=== PATIENT | male | born 1945 | race Hispanic/Latino ===

== ENCOUNTER 2025-04-02 11:42 | Inpatient (IN) | payer OTHER ==
[~2025-04-02] VITALS: Ht 167.6 cm; Wt 58.3 kg
[2025-04-02 12:16] LABS: IMMATURE GRANULOCYTE ABSOLUTE 0.04 K/uL (0-1); NUCLEATED RED BLOOD CELLS 0.0 % (0.0-0.19); PLATELET COUNT (AUTO) 60 K/uL (130-400); RED BLOOD CELL COUNT(AUTO) 4.62 MIL/uL (4.50-6.20); RED CELL DISTRIBUTION WIDTH 14.6 % (11.0-15.5); WHITE BLOOD COUNT (AUTO) 3.9 K/uL (4.8-10.8)
--- NOTE | 2025-04-02 12:23 | HMCIMG ---
EXAM: CR Chest, 1 View. CLINICAL HISTORY: weakness COMPARISON: None provided. FINDINGS: Bilateral perihilar and bibasilar airspace disease that is presumed to reflect a combination of pulmonary edema and atelectasis. Small left and moderate right bilateral effusions. There is cardiomegaly and pulmonary vascular congestion. IMPRESSION: 1. Bilateral perihilar and bibasilar airspace disease, likely representing pulmonary edema and atelectasis, with bilateral pleural effusions (moderate right, small left). 2. Cardiomegaly and pulmonary vascular congestion. /[place]
[2025-04-02 12:24] LABS: CREATININE 1.2 mg/dL (0.5-1.3); GLOMERULAR FILTR. RATE CALC 62.0 mL/min (>90); GLUCOSE,RANDOM 103.0 mg/dL (70-105); SODIUM SERUM 136.0 mmol/L (136-145); UREA NITROGEN, BLOOD 20.0 mg/dL (7-18)
[2025-04-02 12:28] LABS: APPEARANCE,URINE CLEAR (CLEAR); GLUCOSE, URINE (UA) NEGATIVE (NEGATIVE); LEUKOCYTE ESTERASE ,URINE NEGATIVE Leu/uL (NEGATIVE); NITRATE,URINE NEGATIVE (NEGATIVE); OCCULT BLOOD,URINE NEGATIVE (NEGATIVE)
[2025-04-02 12:29] LABS: CREATINE KINASE, TOTAL 58.0 U/L (21-232)
[2025-04-02 12:46] LABS: ADD UA MICROSCOPIC YES
--- NOTE | 2025-04-02 12:49 | ERN ---
General Chief Complaint: Failure to Thrive Stated Complaint: FAILURE TO THRIVE Time Seen by MD: 11:46 Source: patient History of Present Illness Initial Comments Patient is a 79-year-old gentleman coming in to be evaluated for generalized body weakness. Per EMS patient has been a weakness. Allergies: Coded Allergies: No Known Drug Allergies (Unverified Allergy, Unknown, 04/02/25) Past Medical History Past Medical History: No Pertinent History Past Surgical History: Unknown ROS Dictation CONSTITUTIONAL: No chills, no fever, no weakness, no diaphoresis, no malaise. HEAD/FACE: No signs of trauma. EENT: No eye pain, no blurred vision, no tearing, no double vision, no ear pain, no ear discharge, no nose pain, no nasal congestion, no throat pain, no throat swelling, no mouth pain. RESPIRATORY: No cough, no orthopnea, no SOB, no stridor, no wheezing. CARDIOVASCULAR: No chest pain, no edema, no palpitations, no syncope. GASTROINTESTINAL/ABDOMINAL: No abdominal pain, no constipation, no diarrhea, no nausea, no vomiting. GENITOURINARY: No abnormal discharge, no dysuria, no frequent urination, no hematuria. No complaints of pain in the genitals. MUSCULOSKELETAL: No back pain, no gout, no joint pain, no joint swelling, no muscle pain, no muscle stiffness, no neck pain. INTEGUMENTARY: No change in color, no change in hair/nails, no dryness, no lesion, no lumps, no rash. NEUROLOGICAL/PSYCH: No anxiety, not depressed, no emotional problem, no headache, no numbness, no pre-existing deficit, no history of seizures, no chapo mors, no weakness. HEMATOLOGIC/LYMPHATIC: Not anemic, no history of blood clots, no apparent bleeding, no bruising, glands not swollen. All Systems Negative, Except as Noted. Physical Exam Physical Exam Dictation VITAL SIGNS: Reviewed. GENERAL APPEARANCE: Alert, oriented x3, no acute distress, obese. HEAD AND FACE: Non-traumatic. EYES: PERRL, pink conjunctivas, eyelid no trauma, anterior chamber clear. EARS: Pinnas intact and no signs of trauma or erythema. Ear canals clear and no discharge. TMs no erythema. NOSE: No discharge, no bleeding. OROPHARYNX: Mouth normal, teeth no caries, tongue pink. Pharynx clear, no erythema. Tonsils no exudates, no abscesses noted. Mucous membrane moist. NECK: Supple, non-tender, no thyromegaly, no masses, no JVD, no bruits. BREAST: Deferred. CHEST: No tenderness, no crepitus, no paradoxical movement, no retractions. LUNGS: Clear, well-ventilated, symmetric, no rales, no wheezing, no rhonchi, no stridor, good breath sounds bilaterally. HEART: Regular rate, regular rhythm, no murmur, no gallops. VASCULAR: No peripheral edema. ABDOMEN: Soft, positive bowel sounds, nondistended, no guarding, nontender, no rebound, no masses no hepatomegaly, no splenomegaly, no Cuevas's sign, no hernias. RECTAL: Deferred. GENITAL: Deferred. NEUROLOGICAL: Normal speech, gross motor function intact, gross sensory function intact. MUSCULOSKELETAL: Neck nontender, full range of motion, back nontender, full range of motion. EXTREMITIES: Nontender, full range of motion. SKIN: Color pink, dry, no turgor, no rash, no lacerations, no abrasions, no contusions. LYMPHATICS: Deferred. Results Laboratory and Microbiology Lab and Micro Result Laboratory Tests Test 04/02/25 11:58 04/02/25 12:00 White Blood Count 3.9 K/uL (4.8-10.8) L Red Blood Count 4.62 MIL/uL (4.50-6.20) Hemoglobin 14.5 g/dL (14.0-18.0) Hematocrit 42.7 % (42-54) Mean Corpuscular Volume 92.4 fL (79-99) Mean Corpuscular Hemoglobin 31.4 pg (27.0-33.0) Mean Corpuscular Hemoglobin Concent 34.0 g/dL (32.0-36.0) Red Cell Distribution Width 14.6 % (11.0-15.5) Platelet Count 60 K/uL (130-400) L Mean Platelet Volume 10.9 fL (7.5-10.5) H Immature Granulocyte % (Auto) 1.0 % (0-1) Neutrophils (%) (Auto) 53.0 % (40.0-77.0) Lymphocytes (%) (Auto) 36.7 % (21.0-51.0) Monocytes (%) (Auto) 8.5 % (3.0-13.0) Eosinophils (%) (Auto) 0.0 % (0.0-8.0) Basophils (%) (Auto) 0.8 % (0.0-5.0) Neutrophils # (Auto) 2.1 K/uL (1.8-7.7) Lymphocytes # (Auto) 1.4 K/uL (1.0-4.8) Monocytes # (Auto) 0.3 K/uL (0.1-1.0) Eosinophils # (Auto) 0.00 K/uL (0.00-0.70) Basophils # (Auto) 0.03 K/uL (0.00-0.20) Absolute Immature Granulocyte (auto 0.04 K/uL (0-1) Nucleated Red Blood Cells 0.0 % (0.0-0.19) Platelet Morphology Comment See comments Sodium Level 136 mmol/L (136-145) Potassium Level 3.7 mmol/L (3.5-5.1) Chloride Level 102 mmol/L (101-111) Carbon Dioxide Level 23 mmol/L (21-32) Blood Urea Nitrogen 20 mg/dL (7-18) H Creatinine 1.2 mg/dL (0.5-1.3) Glomerular Filtration Rate Calc 62 mL/min (>90) Random Glucose 103 mg/dL (70-105) Total Calcium 9.2 mg/dL (8.5-10.1) Magnesium Level 2.00 mg/dL (1.80-2.40) Total Creatine Kinase 58 U/L (21-232) Troponin I High Sensitivity 84 ng/L (4-75) *H Urine Color YELLOW (YELLOW) Urine Appearance CLEAR (CLEAR) Urine pH 6.0 (5.0-8.0) Urine Specific [place] 1.013 (1.001-1.031) Urine Protein 10 mg/dL (NEGATIVE) H Urine Glucose (UA) NEGATIVE mg/dL (NEGATIVE) Urine Ketones NEGATIVE mg/dL (NEGATIVE) Urine Occult Blood NEGATIVE (NEGATIVE) Urine Nitrate NEGATIVE (NEGATIVE) Urine Bilirubin NEGATIVE mg/dL (NEGATIVE) Urine Urobilinogen 0.2 mg/dL (0.2-1.0) Urine Leukocyte Esterase NEGATIVE [place]/uL Urine RBC 0-1 /HPF (0-1) Urine WBC 2-5 /HPF (0-1) H Urine Squamous Epithelial Cells RARE /HPF (0-2) Urine Bacteria None /HPF (None Seen) Labs Reviewed?: Yes EKG/XRAY/US/CT/MRI EKG Comment 04/02/2025 time 11:52 a.m. Ventricular rate [address] wave elevation or depression X-RAY Comment IMAGING REPORT Signed PATIENT: BECKI ROMERO MR#: [id number] : 1945 SEX: M AGE: 79 LOCATION: EDH ORDER 114 STATUS: REG ER REPORT#: [id number] SERVICE 114 REASON: weakness ORDERING PHYSICIAN: MILES MARCIAL MD PROCEDURE: CXR1VW - CHEST 1VW EXAM: CR Chest, 1 View. CLINICAL HISTORY: weakness COMPARISON: None provided. FINDINGS: Bilateral perihilar and bibasilar airspace disease that is presumed to reflect a combination of pulmonary edema and atelectasis. Small left and moderate right bilateral effusions. There is cardiomegaly and pulmonary vascular congestion. IMPRESSION: 1. Bilateral perihilar and bibasilar airspace disease, likely representing pulmonary edema and atelectasis, with bilateral pleural effusions (moderate right, small left). 2. Cardiomegaly and pulmonary vascular congestion. /[place] DICTATED BY: BENJI MAY Jr., MD DATE: 04/02/251321 ELECTRONICALLY SIGNED BY: BENJI MAY Jr., MD DATE: 04/02/251321 [place] [id number] IMAGING REPORT Signed PATIENT: BECKI ROMERO MR#: [id number] : 1945 SEX: M AGE: 79 LOCATION: ED ORDER 124 STATUS: REG ER REPORT#: [id number] SERVICE 124 REASON: FALL ORDERING PHYSICIAN: MILES MARCIAL MD PROCEDURE: [id number] - ELBOW 2VWS LT EXAM: CR right elbow, 2 View. CLINICAL HISTORY: FALL COMPARISON: None provided. FINDINGS: BONES: No acute fracture or aggressive appearing osseous lesion. Small enthesophyte at the olecranon. JOINTS: The joint spaces appear within normal limits. No dislocation. No radiographic evidence of a joint effusion. SOFT TISSUES: The soft tissues are unremarkable. IMPRESSION: No acute osseous abnormality. /[place] DICTATED BY: BENJI MAY Jr., MD DATE: 04/02/251517 ELECTRONICALLY SIGNED BY: BENJI MAY Jr., MD DATE: 04/02/251517 [facility] MDM: Differential diagnosis: BILATERAL PLEURAL EFFUSION, FAILURE TO THRIVE, ACS, Rationale: Tests considered and ordered secondary to shared decision making include: labs, ECG and radiology Previous outside records reviewed: Old ER visits. Risk of complication and/or morbidity or mortality of patient management: None Medications-Per medication reconciliation Need for hospitalization: Patient does meet criteria for hospitalization. Need for emergency major/minor surgery: No There are no social concerns with this patient. Prescription drug management Prescriptions will include symptomatic care Patient's prior external medical records from other ER visits were reviewed by me as indicated. Prior testing and results from previous visits were reviewed. Prior tests were taken into account with medical decision making and resource utilization, independent historian/historians were used to obtain complete medical history. I independently interpreted the test that were performed, results were reviewed by me and considered findings on radiology if ordered. Medical management and examination interpretation discussions were had by me with other qualified healthcare professionals as indicated for the patient's care. PATIENT WILL BE ADMITTED UNDER THE CARE OF [facility] FOR ONGOING MANAGEMENT. ED Course Orders Procedure Category Date Status Time Cbc With Differential LAB 04/02/25 Complete 11:47 Chest 1vw RAD 04/02/25 Resulted 11:47 12 Lead Ekg Tracing- EKG 04/02/25 Complete Technical 11:47 Magnesium LAB 04/02/25 Complete 11:47 Creatine Kinase, Total LAB 04/02/25 Complete 11:47 Troponin I High LAB 04/02/25 Complete Sensitivity 11:47 Urinalysis Profile LAB 04/02/25 Complete 11:47 Basic Metabolic Panel LAB 04/02/25 Complete 11:47 Elbow 2vws Lt RAD 04/02/25 Resulted 12:49 Vital Signs Date Time Temp Pulse Resp B/P (MAP) Pulse Ox O2 Delivery O2 Flow Rate FiO2 04/02/25 12:44 58 16 160/109 98 Room Air* 0 21 04/02/25 11:45 98.1 108 18 171/100 Room Air DX & DISP Disposition: Inpatient Decision to Admit Time: 14:44 Departure Impression: Primary Impression: Bilateral pleural effusion Additional Impression: ACS (acute coronary syndrome) Condition: Stable Referrals: SELF,REFERRAL (PCP) MILES MARCIAL MD Apr 02, 2025 12:49
[2025-04-02 12:59] LABS: SQUAMOUS EPITHELIAL CELL,UR RARE /HPF (0-2)
--- NOTE | 2025-04-02 13:49 | EKG ---
[facility] Test Date: 2025-04-02 Test Time: 11:52:26 Pat Name: BECKI ROMERO Department: [facility] Room: 315 Gender: M Pressure Testing Technician: [id number] : 1945 Requested By: MILES MARCIAL Order Number: [id number] Reading MD: Noris Corona Measurements Intervals [place] Rate: 107 P: 0 DC: 0 QRS: 23 QRSD: 84 T: 103 QT: 376 QTc: 502 Interpretive Statements Atrial fibrillation with rapid ventricular response Nonspecific T abnormalities, lateral leads Prolonged QT interval No previous ECG available for comparison Electronically Signed On 04-03-2025 10:25:25 CDT by Noris Corona Please click the below link to view image of tracing.
--- NOTE | 2025-04-02 14:19 | HMCIMG ---
EXAM: CR right elbow, 2 View. CLINICAL HISTORY: FALL COMPARISON: None provided. FINDINGS: BONES: No acute fracture or aggressive appearing osseous lesion. Small enthesophyte at the olecranon. JOINTS: The joint spaces appear within normal limits. No dislocation. No radiographic evidence of a joint effusion. SOFT TISSUES: The soft tissues are unremarkable. IMPRESSION: No acute osseous abnormality. /[place]
[2025-04-02] MEDS ORDERED: LACTULOSE 20 GM/30 ML UDCUP PO PRN (15:00)
[2025-04-02] MEDS ORDERED: MAG/ALUM/SIMETH 30 ML UDCUP PO PRN (15:00)
[2025-04-02] MEDS ORDERED: NITROGLYCERIN 0.4 MG SL TAB SL PRN (15:00)
[2025-04-02] MEDS ORDERED: ARTIFICAL TEARS SOL 15 ML OP PRN (15:00)
[2025-04-02] MEDS ORDERED: LOPERAMIDE HCL 2 MG CAP PO PRN (15:00)
[2025-04-02] MEDS ORDERED: LIDOCAINE HCL 2% VISCOUS 30 ML, MAG/ALUM/SIMETH 30ML 30 ML, DICYCLOMINE HCL 20 MG PO PRN (15:00)
--- NOTE | 2025-04-02 15:19 | NUR ---
BED BATH DONE, PT FULL OF FECES UPON ARRIVAL TO ER. BED LINEN AND GOWN CHANGED TOO.
--- NOTE | 2025-04-02 15:24 | NUR ---
[facility]AGED [facility]IT[facility] C[facility] TO NOTIFY OF B/P 172/125, AWAITING CALL BACK
--- NOTE | 2025-04-02 16:19 | NUR ---
NOTIFIED TEDDY SHEIKHP OF NEW B/P 162/103, NO NEW ORDERS
--- NOTE | 2025-04-02 18:42 | HP ---
[facility] HISTORY & PHYSICAL Date Patient Seen: Apr 02, 2025 Time of Visit: 18:41 Supervising Physician: Dr Farzana Smith Primary Care Physician: [ ] Outpatient Specialists: [ ] Inpatient Consults: [ ] PROBLEM LIST: Ground level fall, CT head pending, POA Acute metabolic encephalopathy, POA NSTEMI, POA Hypertension, POA Acute hypoxic respiratory failure, POA Suspected congestive heart failure, POA Failure to thrive, POA Alcohol use, per report patient drinks alcohol daily POA PLAN: Admit to medical-surgical floor VS per unit protocol Facilitate ordered imaging Initiate CIWA protocol Safety precautions Avoid strong narcotics Watch out for delirium Neuro check q.4 Keep SBP less than 160 P.r.n. hydralazine labetalol Multimodal pain relief Aspiration precautions Heart healthy diet Keep serum glucose less than 150 CBC, CMP, magnesium level daily HPI: 79-year-old male with past medical history of hypertension, chronic alcoholism who presented to ED via EMS with complaint of ground level fall, generalized body weakness and found to have possible congestive heart failure, and NSTEMI. Per report EMS was activated by family member after patient was found on the floor for unknown time. There is no reported head trauma or loss of consciousness. In ED CBC was done showed no acute anemia or infection, his UA did not reveal any acute electrolyte or kidney dysfunction. X-ray of his elbow is negative, however his chest x-ray showed bilateral perihilar and basilar airspace disease representing pulmonary edema and atelectasis there is also biopsy pleural effusion right greater than left, with cardiomegaly and pulmonary vascular congestion. Patient was seen and examined in ED with no relatives present at bedside. Patient appears to be confused and unable to answer questions appropriately. He is hemodynamically stable, currently eating his meal, not in acute respiratory distress. All information were obtained from prior medical record and ER staff report. PAST MEDICAL HX: see above PAST SURGICAL HX: noncontributory SOCIAL HISTORY: See HPI Coded Allergies: No Known Drug Allergies (Unverified Allergy, Unknown, 04/02/25) REVIEW OF SYSTEMS: Unable to obtain due to alteration in mental status PHYSICAL EXAM: GENERAL: Confused not in acute respiratory distress HEENT: EOMI, Sclera non icteric, moist mucosa NECK: Supple, no JVD, trachea midline LUNGS: Clear breath sounds bilaterally. No wheezes HEART: Regular rate and rhythm. Normal S1 and S2, without murmurs ABD: Abdomen soft, nontender. Bowel sounds present EXT: No clubbing cyanosis or edema NEURO: Confused, unable to answer questions appropriately Vital Signs (last 8hr) Date Time Temp Pulse Resp B/P (MAP) Pulse Ox O2 Delivery O2 Flow Rate FiO2 04/02/25 16:16 98.1 72 16 162/103 Room Air* 0 21 04/02/25 15:40 74 172/125 04/02/25 15:20 67 16 172/125 98 Room Air* 0 21 04/02/25 12:44 58 16 160/109 98 Room Air* 0 21 04/02/25 11:45 98.1 108 18 171/100 Room Air LABS: Hematology Labs: Test 04/02/25 11:58 Range/Units White Blood Count 3.9 L 4.8-10.8 K/uL Red Blood Count 4.62 4.50-6.20 MIL/uL Hemoglobin 14.5 14.0-18.0 g/dL Hematocrit 42.7 42-54 % Mean Corpuscular Volume 92.4 79-99 fL Mean Corpuscular Hemoglobin 31.4 27.0-33.0 pg Mean Corpuscular Hemoglobin Concent 34.0 32.0-36.0 g/dL Red Cell Distribution Width 14.6 11.0-15.5 % Platelet Count 60 L 130-400 K/uL Mean Platelet Volume 10.9 H 7.5-10.5 fL Immature Granulocyte % (Auto) 1.0 0-1 % Neutrophils (%) (Auto) 53.0 40.0-77.0 % Lymphocytes (%) (Auto) 36.7 21.0-51.0 % Monocytes (%) (Auto) 8.5 3.0-13.0 % Eosinophils (%) (Auto) 0.0 0.0-8.0 % Basophils (%) (Auto) 0.8 0.0-5.0 % Neutrophils # (Auto) 2.1 1.8-7.7 K/uL Lymphocytes # (Auto) 1.4 1.0-4.8 K/uL Monocytes # (Auto) 0.3 0.1-1.0 K/uL Eosinophils # (Auto) 0.00 0.00-0.70 K/uL Basophils # (Auto) 0.03 0.00-0.20 K/uL Absolute Immature Granulocyte (auto 0.04 0-1 K/uL Nucleated Red Blood Cells 0.0 0.0-0.19 % Platelet Morphology Comment See comments Chemistry Labs: Test 04/02/25 15:56 04/02/25 11:58 Range/Units Troponin I High Sensitivity 89 *H 4-75 ng/L Sodium Level 136 136-145 mmol/L Potassium Level 3.7 3.5-5.1 mmol/L Chloride Level 102 101-111 mmol/L Carbon Dioxide Level 23 21-32 mmol/L Blood Urea Nitrogen 20 H 7-18 mg/dL Creatinine 1.2 0.5-1.3 mg/dL Glomerular Filtration Rate Calc 62 >90 mL/min Random Glucose 103 70-105 mg/dL Total Calcium 9.2 8.5-10.1 mg/dL Magnesium Level 2.00 1.80-2.40 mg/dL Total Creatine Kinase 58 21-232 U/L DIAGNOSTICS / RADIOLOGY RESULTS: EXAM: CR Chest, 1 View. CLINICAL HISTORY: weakness COMPARISON: None provided. FINDINGS: Bilateral perihilar and bibasilar airspace disease that is presumed to reflect a combination of pulmonary edema and atelectasis. Small left and moderate right bilateral effusions. There is cardiomegaly and pulmonary vascular congestion. IMPRESSION: 1. Bilateral perihilar and bibasilar airspace disease, likely representing pulmonary edema and atelectasis, with bilateral pleural effusions (moderate right, small left). 2. Cardiomegaly and pulmonary vascular congestion PLAN NEURO: Minimize central acting medications as possible. Maintain fall precautions, adequate lighting during the day PULMONARY: Supplemental 02 as needed. Maintain aspiration precautions at all times CARDIOVASCULAR: Follow hemodynamics. Vital signs per facility protocol GI & NUTRITION: Continue with nutritional support. Continue stool softeners and laxatives as needed. KIDNEYS & ELECTROLYTES: Strict monitoring of intake, output and overall fluid balance. Avoid nephrotoxic medications to the extent possible. Medications to be dosed according to renal function. Monitor electrolytes and replace as needed ENDOCRINE: Maintain blood glucose between 100-180 at all times. Hypoglycemia protocol in place INFECTIOUS DISEASE: Trend temperature, WBC and procalcitonin level Follow cultures, deescalate antibiotics as soon as possible. Panculture if new onset fever ONCOLOGY/HEMATOLOGY/COAGULATION: Monitor for s/s of bleeding Monitor hemoglobin, coagulation studies as needed SKIN: Pressure ulcer prevention per facility protocol Specialty mattress ORTHO/REHAB: Continue PT/OT Prophylaxis: Continue GI and DVT prophylaxis Code Status: Full Resuscitation Disposition: TBD Supervising physician: FELA Colvin [facility] Apr 02, 2025 18:42
--- NOTE | 2025-04-02 19:36 | NUR ---
NO AVAIL MEDS AT BEDSIDE
[2025-04-02 20:19] LABS: SARS-CoV-2, RNA, NAAT NEGATIVE SARS CoV-2 (NEGATIVE)
[2025-04-02 20:25] LABS: INFLUENZA TYPE A Negative For Type A (NEGATIVE); INFLUENZA TYPE B Negative For Type B (NEGATIVE)
[2025-04-02] MEDS ORDERED: PHARMACY COMMUNICATION MISC PRN (20:30)
[2025-04-02 20:49] LABS: AMPHET/METH SCREEN,URINE NEGATIVE (NEGATIVE); BARBITURATE SCREEN, URINE NEGATIVE (NEGATIVE); CANNABINOID SCREEN,URINE NEGATIVE (NEGATIVE); COCAINE SCREEN,URINE POSITIVE (NEGATIVE)
[2025-04-02 21:12] LABS: ALCOHOL, BLOOD < 3 mg/dL (0-10)
--- NOTE | 2025-04-02 22:09 | HMCIMG ---
EXAM: CT Head Without IV Contrast CLINICAL HISTORY: Patient presents with head injury. TECHNIQUE: Axial computed tomography images of the head and brain were obtained without intravenous contrast. COMPARISON: None provided. FINDINGS: BRAIN: Diffuse age-related cerebral atrophy with dilatation of the lateral ventricles, prominence of the basal cisterns, cortical sulci, and bilateral sylvian fissures. Ill-defined hypodensities involving the bilateral periventricular and fronto-parietal white matter, likely representing chronic microangiopathic ischemic changes. A focal chronic lacunar infarct in the left centrum semiovale. No evidence of acute intracranial hemorrhage, mass effect, or midline shift. No acute territorial infarct or extra-axial collection. VENTRICLES: No hydrocephalus. ORBITS: Unremarkable. SINUSES AND MASTOIDS: Paranasal sinuses and mastoid air cells are clear. BONES: Linear undisplaced fracture involving the left mandibular condyle. Incidental occipital spur. SOFT TISSUES: Unremarkable. IMPRESSION: No acute intracranial hemorrhage or infarct. Diffuse age-related cerebral atrophy with chronic microangiopathic ischemic changes. Chronic lacunar infarct in the left centrum semiovale. Linear undisplaced fracture involving the left mandibular condyle. Incidental occipital spur. Recommend MRI brain with diffusion-weighted imaging for better evaluation of chronic ischemic changes and to exclude subtle acute infarction if clinically indicated. /[place]
[2025-04-02 22:15] VITALS: BP 156/89; PULSE 97; RESP 18; TEMP 97.5
[2025-04-02 23:00] VITALS: O2SAT 95
[2025-04-03] VITALS: BP 152/93; PULSE 50; RESP 18; TEMP 98.2
[2025-04-03 08:00] VITALS: BP 167/116; PULSE 57; RESP 16; TEMP 97.6; O2SAT 95
[2025-04-03 09:33] LABS: IMMATURE GRANULOCYTE ABSOLUTE 0.01 K/uL (0-1); NUCLEATED RED BLOOD CELLS 0.0 % (0.0-0.19); PLATELET COUNT (AUTO) 48 K/uL (130-400); RED BLOOD CELL COUNT(AUTO) 5.24 MIL/uL (4.50-6.20); RED CELL DISTRIBUTION WIDTH 14.8 % (11.0-15.5); WHITE BLOOD COUNT (AUTO) 4.6 K/uL (4.8-10.8)
[2025-04-03 09:45] LABS: ASPARTATE AMINOTRANSFERASE 45.0 U/L (10-37); CREATININE 1.2 mg/dL (0.5-1.3); GLOMERULAR FILTR. RATE CALC 62.0 mL/min (>90); GLUCOSE,RANDOM 94.0 mg/dL (70-105); SODIUM SERUM 138.0 mmol/L (136-145); TOTAL PROTEIN, SERUM 7.7 g/dL (6.0-8.3); UREA NITROGEN, BLOOD 18.0 mg/dL (7-18)
[2025-04-03] MEDS: MULTIVITAMIN TABLET PO SCH (10:22)
[2025-04-03] MEDS: THIAMINE HCL 100 MG/ML 2ML VIAL IM SCH (10:23)
[2025-04-03 12:00] VITALS: BP 166/99; PULSE 115; RESP 19; TEMP 98
--- NOTE | 2025-04-03 12:40 | NUR ---
PERSON BY THE NAME JUANJOSE DUVALL CALLED ASKING FOR INFORMATION AND STATED SHE WAS THE PT DAUGHTER. I WENT TO CONFIRM WITH PT AND COUSIN: [place] AT BEDSIDE, AND BOTH PT AND COUSIN STATED HE HAS NO DAUGHTER AND WOULD NOT LIKE TO TAKE THE CALL. PT STATED THAT HE KNEW WHO SHE WAS. WHEN ASKED HOW, HE STATED THAT SHE GOES TO HIS HOUSE AND BRINGS CRACK-COCAINE INTO PT HOME. PT REFUSED CALL AND WHEN BROUGHT UP TO KASSANDRA THAT PT DENIES HAVING A DAUGHTER OR ANY CHILDREN SHE CHANGED STORY TO SHE WAS THE ADOPTED DAUGHTER, SHE THEN HUNG UP WHEN PT REFUSED TO TAKE HER CALL. MD AND IMAGING SCHEDULER MADE AWARE.
--- NOTE | 2025-04-03 13:57 | EKG ---
[facility] Test Date: 2025-04-03 Test Time: 13:55:39 Pat Name: BECKI ROMERO Department: [facility] Room: 315 1 Gender: M Systems Test Engineer: NEVILLE : 1945 Requested By: CHADWICK WALTERS Order Number: [id number] Reading MD: Noris Corona Measurements Intervals [place] Rate: 115 P: 0 MI: 0 QRS: 1 QRSD: 82 T: 101 QT: 322 QTc: 445 Interpretive Statements Atrial fibrillation with rapid ventricular response Nonspecific T wave abnormality Compared to ECG 04/02/2025 11:52:26 Prolonged QT interval no longer present T-wave abnormality still present Electronically Signed On 04-03-2025 16:38:33 CDT by Noris Corona Please click the below link to view image of tracing.
--- NOTE | 2025-04-03 14:00 | NUR ---
TELE CALLED PT HR A-FIB 141, ANTONIO VILLAFANA MADE AWARE AND AT BEDSIDE. ORDERS ENTERED. WILL CONTINUE TO MONITOR.
--- NOTE | 2025-04-03 14:11 | NUR ---
DCP:YUSUFING HONEY met with a second cousin Georges Munoz [phone] who was at bedside. Pt is a poor historian of his health. Stephen states that in the last 30 days he has been having a lot of issues with his health and has been very forgetful. Pt lives alone in his home and cousin state that conditions are very bad and "not liveable". Pt does not have a provider or home health. Stephen states that is has been about 45 days since his last shower and had been relieving himself on the floor next to his bed and on his bed. Stephen states that he has not allowed anyone inside his home, she only takes him 3 meals a day and leaves the food right by his door without going in however yesterday when he wouldn't answer she walked in to look for him. Pt does not have a PCP and refuses to go to a doctor and will only go to ER. Stephen states that he is a (have not been able to confirm). At [place] stephen states that it would be best for him to go to a SNF because he "can't care for himself". Addendum: 04/03/25 at 1419 by NADIA OLMSTEAD SS Amended: Links added.
--- NOTE | 2025-04-03 14:32 | NUR ---
[facility] SW identified that pt has an APS case management director Margaret Orooa [phone]. SW attempted to make contact with case management director to inform her of conditions that cousin reported but there was no answer. SW left detailed voicemail with a request for a call back.
--- NOTE | 2025-04-03 16:05 | NUR ---
IN HONEY made contact with Wendy [facility] and pt is not currently service connected nor has any SNF benefits. As per Wendy, pt has not seen a doctor from the [facility] since 2021.
[2025-04-03 17:00] VITALS: BP 147/104; PULSE 65; RESP 22; TEMP 98.7
--- NOTE | 2025-04-03 17:00 | NUR ---
TRANSFERRED TO [facility]. PT DENIES PAIN, IN NO APPARENT DISTRESS. PERMISSION FROM PT TO CALL YAW TO UPDATE ON ROOM CHANGE.
--- NOTE | 2025-04-03 18:49 | PN ---
[facility] PROGRESS NOTE Date Patient Seen: Apr 03, 2025 Time of Visit: 18:49 Supervising Physician: Dr. Farzana Smith Primary Care Physician: [ ] Outpatient Specialists: [ ] Inpatient Consults: [ ] PROBLEM LIST: Atrial fibrillation with RVR Ground level fall, CT head pending, POA Acute metabolic encephalopathy, POA NSTEMI, POA Hypertension, POA Acute hypoxic respiratory failure, POA Suspected congestive heart failure, POA Suspect CVA verse TIA Failure to thrive, POA Alcohol use, per report patient drinks alcohol daily POA Abuse, tested positive drug screening, POA PLAN: Transferred to PCCU Diltiazem drip initiated Stat EKG Echocardiogram, stat Cardiology consult requested [facility] protocol Valium 5 mg p.o. q.6 hours scheduled MRI brain ordered Neuro checks q.4 hours Thiamine 300 mg IV times once then 100 mg daily MVI , banana bag infused daily INTERVAL HISTORY: 04/03-patient was seen and assessed by myself, awake alert and in no acute distress. Accompanied by patient's bedside nurse, and was joined by patient's 2nd cousin, name Charlotte who has been taking care of the patient.. Family member expressed and reports that the patient's home life is somewhat unorganized patient has been misusing alcohol and cocaine regularly and has had notable neuro deficits and inability to ambulate or right is bicycle. Upon further investigation found out the patient to be in a new onset atrial fibrillation with RVR. Diagnostic tests ordered: EKG, stat which confirmed atrial fibrillation with RVR. Request cardiac consult. Ordered diltiazem drip, patient then to be transferred to PCCU for management. A.m. labs ordered for tomorrow. Valium 5 mg p.o. q.6 hours scheduled to keep patient relaxed. We will continue with CIWA protocol. REVIEW OF SYSTEMS: Unable to obtain due to alteration in mental status PHYSICAL EXAM: GENERAL: Confused not in acute respiratory distress HEENT: EOMI, Sclera non icteric, moist mucosa NECK: Supple, no JVD, trachea midline LUNGS: Clear breath sounds bilaterally. No wheezes HEART: Regular rate and rhythm. Normal S1 and S2, without murmurs ABD: Abdomen soft, nontender. Bowel sounds present EXT: No clubbing cyanosis or edema NEURO: Confused, unable to answer questions appropriately Vital Signs (last 8hr) Date Time Temp Pulse Resp B/P (MAP) Pulse Ox O2 Delivery O2 Flow Rate FiO2 04/03/25 17:19 151 157/88 04/03/25 17:00 98.8 65 22 147/104 99 Room Air 04/03/25 12:00 98.1 115 19 166/99 93 Room Air LABS: Hematology Labs: Test 04/03/25 09:22 04/02/25 11:58 Range/Units White Blood Count 4.6 L 4.8-10.8 K/uL Red Blood Count 5.24 4.50-6.20 MIL/uL Hemoglobin 16.3 14.0-18.0 g/dL Hematocrit 49.2 42-54 % Mean Corpuscular Volume 93.9 79-99 fL Mean Corpuscular Hemoglobin 31.1 27.0-33.0 pg Mean Corpuscular Hemoglobin Concent 33.1 32.0-36.0 g/dL Red Cell Distribution Width 14.8 11.0-15.5 % Platelet Count 48 L 130-400 K/uL Mean Platelet Volume 9.9 7.5-10.5 fL Immature Granulocyte % (Auto) 0.2 0-1 % Neutrophils (%) (Auto) 53.2 40.0-77.0 % Lymphocytes (%) (Auto) 34.6 21.0-51.0 % Monocytes (%) (Auto) 9.6 3.0-13.0 % Eosinophils (%) (Auto) 1.3 0.0-8.0 % Basophils (%) (Auto) 1.1 0.0-5.0 % Neutrophils # (Auto) 2.4 1.8-7.7 K/uL Lymphocytes # (Auto) 1.6 1.0-4.8 K/uL Monocytes # (Auto) 0.4 0.1-1.0 K/uL Eosinophils # (Auto) 0.06 0.00-0.70 K/uL Basophils # (Auto) 0.05 0.00-0.20 K/uL Absolute Immature Granulocyte (auto 0.01 0-1 K/uL Nucleated Red Blood Cells 0.0 0.0-0.19 % Platelet Morphology Comment See comments Chemistry Labs: Test 04/03/25 16:25 04/03/25 09:22 04/02/25 20:46 04/02/25 18:40 Range/Units Whole Blood Glucose 99 70-110 MG/DL Sodium Level 138 136-145 mmol/L Potassium Level 3.4 L 3.5-5.1 mmol/L Chloride Level 103 101-111 mmol/L Carbon Dioxide Level 27 21-32 mmol/L Blood Urea Nitrogen 18 7-18 mg/dL Creatinine 1.2 0.5-1.3 mg/dL Glomerular Filtration Rate Calc 62 >90 mL/min Random Glucose 94 70-105 mg/dL Total Calcium 9.3 8.5-10.1 mg/dL Total Bilirubin 1.2 H 0.2-1.0 mg/dL Direct Bilirubin 0.5 H 0.0-0.3 mg/dL Aspartate Amino Transf (AST/SGOT) 45 H 10-37 U/L Alanine Aminotransferase (ALT/SGPT) 27 12-78 U/L Alkaline Phosphatase 69 50-136 U/L Ammonia 11 11-32 umol/L Total Protein 7.7 6.0-8.3 g/dL Albumin 2.8 L 3.5-5.0 g/dL B-Type Natriuretic Peptide 2210 H 0-100 pg/mL Troponin I High Sensitivity 88 *H 4-75 ng/L Test 04/02/25 11:58 Range/Units Hemoglobin A1c 5.6 4.0-6.0 % Estimated Average Glucose (eAG) 114 70-126 mg/dL Magnesium Level 2.00 1.80-2.40 mg/dL Total Creatine Kinase 58 21-232 U/L DIAGNOSTICS / RADIOLOGY RESULTS: [ ] PLAN NEURO: Minimize central acting medications as possible. Maintain fall precautions, adequate lighting during the day PULMONARY: Supplemental 02 as needed. Maintain aspiration precautions at all times CARDIOVASCULAR: Follow hemodynamics. Vital signs per facility protocol GI & NUTRITION: Continue with nutritional support. Continue stool softeners and laxatives as needed. KIDNEYS & ELECTROLYTES: Strict monitoring of intake, output and overall fluid balance. Avoid nephrotoxic medications to the extent possible. Medications to be dosed according to renal function. Monitor electrolytes and replace as needed ENDOCRINE: Maintain blood glucose between 100-180 at all times. Hypoglycemia protocol in place INFECTIOUS DISEASE: Trend temperature, WBC and procalcitonin level Follow cultures, deescalate antibiotics as soon as possible. Panculture if new onset fever ONCOLOGY/HEMATOLOGY/COAGULATION: Monitor for s/s of bleeding Monitor hemoglobin, coagulation studies as needed SKIN: Pressure ulcer prevention per facility protocol Specialty mattress ORTHO/REHAB: Continue PT/OT Prophylaxis: Continue GI and DVT prophylaxis Code Status: Full Resuscitation Disposition: TBD 50 minutes critical care time was utilized because the patient has criteria involves to systems cardiovascular and pulmonary systems. Additionally, neurovascular suspect TIA versus CVA recently. My assessment findings, diagnostic tests results, laboratory results, patient's recent health history was reviewed and discussed with my supervising physician, Dr Farzana Smith and an interventional plan was developed. [facility]S [facility] Apr 03, 2025 18:49
[2025-04-03 19:34] VITALS: BP 149/109; PULSE 142; RESP 18; TEMP 98
[2025-04-03 20:00] VITALS: O2SAT 100
--- NOTE | 2025-04-03 21:30 | NUR ---
PT RETURNED TO ROOM VIA BED BY INSPECTING ENGINEER, STATES PT UNCOOPERATIVE AND MRI UNABLE TO BE DONE, TO BE MADE AWARE
--- NOTE | 2025-04-03 21:36 | NUR ---
attempted mri brain wo. pt unable to tolerate exam. pt was attempting pull himself of the mri couch with legs. immobilizers were beginning to fail. unsafe to continue. diagnostic quality imaging is also impossible at this time due to pts condition.
--- NOTE | 2025-04-03 22:10 | CONS ---
CONSULT NOTE: CARDIOLOGY Reason for consult: Atrial fibrillation HPI/story at presentation: This is a pleasant 79-year-old male with past medical history as below presents with complaints of a fall. Currently, being treated for this,. To thrive at presentation. Was found to have atrial fibrillation therefore, cardiology was consulted for further evaluation management Past medical history: See below Allergies, Meds See chart Review of systems Review of Systems Constitutional: Negative for chills and fever. HENT: Negative for ear discharge and ear pain. Eyes: Negative for photophobia and discharge. Respiratory: Negative for cough, sputum production and stridor. Cardiovascular: Negative for chest pain and palpitations. Gastrointestinal: Negative for diarrhea and vomiting. Genitourinary: Negative for frequency. Musculoskeletal: Negative for myalgias. Skin: Negative for rash. Neurological: Negative for focal weakness and seizures. Endo/Heme/Allergies: Negative for polydipsia. Psychiatric/Behavioral: Negative for hallucinations. Vitals see chart PHYSICAL EXAMINATION GENERAL: The patient is alert and oriented*3 HEENT: Nonicteric sclerae, non traumatic HEART: Regular rate and rhythm with no murmurs LUNGS: Clear to auscultation bilaterally ABDOMEN: No acute issues, non tender GENITAL, RECTAL: deferred SKIN: No rash NEUROLOGIC: NFND EXTREMITIES: No edema ASSESSMENT ATRIAL FIBRILLATION WITH RVR On Cardizem, 03/2025 FAILURE TO THRIVE, FALL At presentation ELEVATED TROPONIN Likely type II in the setting of underlying issues RESPIRATORY FAILURE On oxygen HYPERTENSION, ALCOHOL USE OTHER MEDICAL PROBLEMS Reviewed PLAN 04/03/2025 continue current medical therapy for now, eventual Cardizem, echo pending, will keep rates less than 120 for now. On metoprolol and Cardizem at this time. Start heparin seen and examined 04/03/2025 at around 8 PM. ATTESTATION I was involved substantially in the care of this patient Number and complexity of problems addressed: 1 acute illness with systemic features Amount and or complexity of data Review of prior external note(s) from each unique source: 2+ Ordering of each unique test : 0 Review of the result(s) of each unique test: 2+ Assessment requiring an independent historian(s): No Independent interpretation of test performed by another MD/QHCP/appropriate source (not separately reported) : No Discussion of management or test interpretation with external MD/QHCP/appropriate source (not separately reported) : No Risk status (cardiac, billing related): Moderate LOPEZ RODRIGUEZ MD Apr 03, 2025 22:10
[2025-04-04] VITALS (8 sets, daily range): BP systolic 102–154; BP diastolic 53–99; PULSE 68–85; RESP 18–22; TEMP 97.2–98.8; O2SAT 95–97
--- NOTE | 2025-04-04 05:00 | NUR ---
CARDIZEM DRIP WEANED OFF. TELEMETRY AFIB 60-70. DENIES CHEST PAIN OR DISCOMFORT, TELEMETRY MONITORING. TOTAL CARE WITH ADLS, TURNED Q 2 HOURS AND NEEDED. CALL LIGHT WITHIN REACH, TELEMETRY MONITORING
[2025-04-04] MEDS: diazePAM 5 MG TAB PO SCH (07:30)
[2025-04-04 07:45] LABS: NUCLEATED RED BLOOD CELLS 0.0 % (0.0-0.19); PLATELET COUNT (AUTO) 53.0 K/uL (130-400); RED BLOOD CELL COUNT(AUTO) 4.16 MIL/uL (4.50-6.20); RED CELL DISTRIBUTION WIDTH 14.6 % (11.0-15.5); WHITE BLOOD COUNT (AUTO) 7.4 K/uL (4.8-10.8)
[2025-04-04 07:51] LABS: INR 1.18 (0.85-1.15)
[2025-04-04 08:12] LABS: ASPARTATE AMINOTRANSFERASE 47.0 U/L (10-37); CREATININE 1.1 mg/dL (0.5-1.3); GLOMERULAR FILTR. RATE CALC 69.0 mL/min (>90); GLUCOSE,RANDOM 102.0 mg/dL (70-105); SODIUM SERUM 135.0 mmol/L (136-145); TOTAL PROTEIN, SERUM 6.3 g/dL (6.0-8.3); UREA NITROGEN, BLOOD 21.0 mg/dL (7-18)
[2025-04-04 08:54] LABS: IMMATURE GRANULOCYTE ABSOLUTE 0.04 K/uL (0-1); NUCLEATED RED BLOOD CELLS 0.0 % (0.0-0.19); PLATELET COUNT (AUTO) 55 K/uL (130-400); RED BLOOD CELL COUNT(AUTO) 4.14 MIL/uL (4.50-6.20); RED CELL DISTRIBUTION WIDTH 14.7 % (11.0-15.5); WHITE BLOOD COUNT (AUTO) 7.4 K/uL (4.8-10.8)
--- NOTE | 2025-04-04 10:10 | NUR ---
THIS PATIENT REFUSED TO TAKE MORNING MEDICATIONS AND STATED "JUST LEAVE ME ALONE AND LEAVE". I EDUCATED ON IMPORTANCE OF TAKE MEDICATIONS. POA NOTIFIED AND SHE STATED SHE WOULD COME BY TO SPEAK WITH HIM.
--- NOTE | 2025-04-04 10:18 | PN ---
[facility] PROGRESS NOTE Date Patient Seen: Apr 04, 2025 Time of Visit: 10:17 Supervising Physician: Dr. Navdeep Sahu Primary Care Physician: Self, referral Outpatient Specialists: [ ] Inpatient Consults: Dr. Downing (Cardiology) PROBLEM LIST: Atrial fibrillation with RVR Ground level fall, CT head pending, POA Acute metabolic encephalopathy, POA NSTEMI, POA Hypertensive urgency, POA Acute hypoxic respiratory failure, POA Suspected congestive heart failure, POA Suspect CVA verse TIA Failure to thrive, POA Thrombocytopenia, POA Alcohol use, per report patient drinks alcohol daily POA Abuse, tested positive drug screening, POA PLAN: Transferred to PCCU Telemetry. Diltiazem drip initiated Stat EKG, confirmed atrial fib with RVR Echocardiogram, awaiting interpretation Cardiology consult requested [facility] protocol Valium 5 mg p.o. q.6 hours scheduled MRI brain ordered Neuro checks q.4 hours Thiamine 300 mg IV times once then 100 mg daily MVI , banana bag infused daily INTERVAL HISTORY: 04/03-patient was seen and assessed by myself, awake alert and in no acute distress. Accompanied by patient's bedside nurse, and was joined by patient's 2nd cousin, jeremy Porter who has been taking care of the patient.. Family member expressed and reports that the patient's home life is somewhat unorganized patient has been misusing alcohol and cocaine regularly and has had notable neuro deficits and inability to ambulate or right is bicycle. Upon further investigation found out the patient to be in a new onset atrial fibrillation with RVR. Diagnostic tests ordered: EKG, stat which confirmed atrial fibrillation with RVR. Request cardiac consult. Ordered diltiazem drip, patient then to be transferred to PCCU for management. A.m. labs ordered for tomorrow. Valium 5 mg p.o. q.6 hours scheduled to keep patient relaxed. We will continue with CIWA protocol. 04/04-patient is assessed and examined with Parminder patient's bedside nurse accompanying me, patient is awake and alert. Patient is no acute distress at this time. Patient has unclear thoughts. Patient has declined to take any oral medications or any mild conscious sedation so we can have the MRI. This is a change in the patient's behavior from yesterday. When the patient wanted to be treated for his atrial fib with RVR. Medications are available to be taken to help manage this AFib with RVR acute new onset, with metoprolol 25 mg p.o. b.i.d. in conjunction with a Cardizem drip currently which has been on hold because the patient's heart rate is in the 70s. Cardiology has been consulted, have 48 hours to start patient on some form of anticoagulation therapy, must be balanced with patient's history of recent abuse of alcohol and of cocaine. We will request assistance from case management. A.m. labs have been ordered. REVIEW OF SYSTEMS: Unable to obtain due to alteration in mental status PHYSICAL EXAM: GENERAL: Confused not in acute respiratory distress HEENT: EOMI, Sclera non icteric, moist mucosa NECK: Supple, no JVD, trachea midline LUNGS: Clear breath sounds bilaterally. No wheezes HEART: Irregular rhythm rate controlled, atrial fib. ABD: Abdomen soft, nontender. Bowel sounds present EXT: No clubbing cyanosis or edema NEURO: Confused, unable to answer questions appropriately Vital Signs (last 8hr) Date Time Temp Pulse Resp B/P (MAP) Pulse Ox O2 Delivery O2 Flow Rate FiO2 04/04/25 07:00 97.5 68 20 131/80 95 Room Air 04/04/25 04:10 98.8 70 18 134/75 93 Room Air LABS: Hematology Labs: Test 04/04/25 07:32 04/02/25 11:58 Range/Units White Blood Count 7.4 4.8-10.8 K/uL Red Blood Count 4.14 L 4.50-6.20 MIL/uL Hemoglobin 13.1 L 14.0-18.0 g/dL Hematocrit 38.4 L 42-54 % Mean Corpuscular Volume 92.8 79-99 fL Mean Corpuscular Hemoglobin 31.6 27.0-33.0 pg Mean Corpuscular Hemoglobin Concent 34.1 32.0-36.0 g/dL Red Cell Distribution Width 14.7 11.0-15.5 % Platelet Count 55 L 130-400 K/uL Mean Platelet Volume 11.0 H 7.5-10.5 fL Immature Granulocyte % (Auto) 0.5 0-1 % Neutrophils (%) (Auto) 69.5 40.0-77.0 % Lymphocytes (%) (Auto) 21.5 21.0-51.0 % Monocytes (%) (Auto) 8.1 3.0-13.0 % Eosinophils (%) (Auto) 0.1 0.0-8.0 % Basophils (%) (Auto) 0.3 0.0-5.0 % Neutrophils # (Auto) 5.2 1.8-7.7 K/uL Lymphocytes # (Auto) 1.6 1.0-4.8 K/uL Monocytes # (Auto) 0.6 0.1-1.0 K/uL Eosinophils # (Auto) 0.01 0.00-0.70 K/uL Basophils # (Auto) 0.02 0.00-0.20 K/uL Absolute Immature Granulocyte (auto 0.04 0-1 K/uL Nucleated Red Blood Cells 0.0 0.0-0.19 % Platelet Morphology Comment See comments Chemistry Labs: Test 04/04/25 07:32 04/03/25 16:25 04/03/25 09:22 04/02/25 20:46 Range/Units Sodium Level 135 L 136-145 mmol/L Potassium Level 3.5 3.5-5.1 mmol/L Chloride Level 103 101-111 mmol/L Carbon Dioxide Level 25 21-32 mmol/L Blood Urea Nitrogen 21 H 7-18 mg/dL Creatinine 1.1 0.5-1.3 mg/dL Glomerular Filtration Rate Calc 69 >90 mL/min Random Glucose 102 70-105 mg/dL Total Calcium 8.3 L 8.5-10.1 mg/dL Total Bilirubin 1.0 0.2-1.0 mg/dL Aspartate Amino Transf (AST/SGOT) 47 H 10-37 U/L Alanine Aminotransferase (ALT/SGPT) 25 12-78 U/L Alkaline Phosphatase 58 50-136 U/L Ammonia 11 11-32 umol/L Total Protein 6.3 6.0-8.3 g/dL Albumin 2.3 L 3.5-5.0 g/dL Thyroid Stimulating Hormone (TSH) 2.73 0.36-3.74 uIU/mL Whole Blood Glucose 99 70-110 MG/DL Direct Bilirubin 0.5 H 0.0-0.3 mg/dL B-Type Natriuretic Peptide 2210 H 0-100 pg/mL Test 04/02/25 18:40 04/02/25 11:58 Range/Units Troponin I High Sensitivity 88 *H 4-75 ng/L Hemoglobin A1c 5.6 4.0-6.0 % Estimated Average Glucose (eAG) 114 70-126 mg/dL Magnesium Level 2.00 1.80-2.40 mg/dL Total Creatine Kinase 58 21-232 U/L Coagulation Labs: Test 04/04/25 07:32 Range/Units Prothrombin Time 12.3 H 9.6-11.6 SEC Prothromb Time International Ratio 1.18 H 0.85-1.15 Activated Partial Thromboplast Time 34.0 26.3-35.5 SEC DIAGNOSTICS / RADIOLOGY RESULTS: [ ] PLAN NEURO: Minimize central acting medications as possible. Maintain fall precautions, adequate lighting during the day PULMONARY: Supplemental 02 as needed. Maintain aspiration precautions at all times CARDIOVASCULAR: Follow hemodynamics. Vital signs per facility protocol GI & NUTRITION: Continue with nutritional support. Continue stool softeners and laxatives as needed. KIDNEYS & ELECTROLYTES: Strict monitoring of intake, output and overall fluid balance. Avoid nephrotoxic medications to the extent possible. Medications to be dosed according to renal function. Monitor electrolytes and replace as needed ENDOCRINE: Maintain blood glucose between 100-180 at all times. Hypoglycemia protocol in place INFECTIOUS DISEASE: Trend temperature, WBC and procalcitonin level Follow cultures, deescalate antibiotics as soon as possible. Panculture if new onset fever ONCOLOGY/HEMATOLOGY/COAGULATION: Monitor for s/s of bleeding Monitor hemoglobin, coagulation studies as needed SKIN: Pressure ulcer prevention per facility protocol Specialty mattress ORTHO/REHAB: Continue PT/OT Prophylaxis: Continue GI and DVT prophylaxis Code Status: Full Resuscitation Disposition: TBD 45 minutes critical care time was utilized because the patient has criteria i nvolves to systems cardiovascular and pulmonary systems. Additionally, neurovascular suspect TIA versus CVA recently. My assessment findings, diagnostic tests results, laboratory results, patient's recent health history was reviewed and discussed with my supervising physician, Dr Farzana Smith and an interventional plan was developed. CHADWICK WALTERS AGACNP Apr 04, 2025 10:18
--- NOTE | 2025-04-04 10:39 | NUR ---
ATTEMPTED TO BRING DOWN PT FOR ANOTHER ATTEMPT AT THE MRI BRAIN. PT REFUSING COOPERATION AND THE EXAM ITSELF.
--- NOTE | 2025-04-04 13:08 | NUR ---
THE COUSIN CLINTON OF THIS PATIENT CAME BY TO SPEAK TO THIS PATIENT. SHE WAS ABLE TO CONVINCE HIM TO TAKE HIS MEDICATIONS AND HE WAS COMPLIANT AND TOOK HIS MEDS. HE WAS EVEN AGREEABLE TO GO TO MRI.
--- NOTE | 2025-04-04 16:05 | HMCSR ---
APPROVED REPORT EXAM: LIMITED Two-dimensional and M-mode echocardiogram with Doppler and color Doppler. INDICATION ICD: congestive heart failure 2D Dimensions RVDd3.5 cmLVEF(%)26.6 (>50%)LVED Vol(simp.)92.4 mL IVSd1.2 (0.7-1.1cm)FS(%)12 %LVES Vol(simp.)73.9 mL LVDd4.3 (3.8-5.6cm)LA (2D)4.0 (1.6-4.0cm)LVEF(%, simp.)20 % PWd1.5 (0.7-1.1cm)Ao Root(2D)2.8 (2.0-3.7cm)LA ESV INDEX (BP)37.22 mL/m2 LVDs3.8 (2.5-4.0cm)LVOT diam2.2 (1.8-2.4cm) IVC diam2.0 cm Deformation Strain Apical 4-3.9 % Apical 2-3.7 % Apical 3-3.8 % Global Strain-3.8 % M-Mode Dimensions EPSS1.1 cm LA (MM)4.7 (1.6-4.0cm) Ao Root(MM)3.0 (2.0-3.7cm) Aortic Valve AoV Vmax2.1 m/Leonidas Peak GR17.3 mmHgLVOT Vmax0.4 m/s AoV VTI0.3 mAo Mean GR8.6 mmHgLVOT VTI0.07 m SIADORA (VMAX)0.84 cm2AVA (VTI) 0.8 cm2 Mitral Valve MV E Vmax76.5 cm/sDECEL Zcnk422 ms MV A Vmax25.6 cm/sP 1/2 T86 ms E/A ratio3.0MVA (PHT)2.6 cm2 TDI E/E' Waciaq72.5E/E' Wbkykww15.5 Medial E' Peak V4.64 cm/sLateral E' Peak V4.64 cm/s Tricuspid Valve TR Vmax2.8 m/sRAP (EST) 8 quXaHRHK65.6 mmHg TR Peak GR39.6 mmHg Left Ventricle The left ventricle is normal size. Severe global hypokinesis Mild to moderate left ventricular hypert rophy. LVEF is <20%. The LV diastolic function was unable to be assessed due to atrial arrhythmia. Right Ventricle The right ventricle is normal size. Right ventricular systolic function is mildly reduced. Atria The left atrium is moderately dilated. The right atrium is severely dilated. Aortic Valve The aortic valve is calcified and displays decreased opening. No aortic regurgitation is present. Low flow-low gradient aortic stenosis is present. Calculated ISADORA is 0.9cm2. Mitral Valve The mitral valve is normal in structure. Mitral regurgitation is mild. There is no mitral valve steno sis. Tricuspid Valve The tricuspid valve is normal in structure. There is mild to moderate tricuspid valve regurgitation n oted, RVSP 48mmHg. Pulmonic Valve The pulmonary valve is normal in structure. There is no pulmonic valvular regurgitation. Great Vessels The aortic root is normal in size. The IVC is normal in size and collapses <50% with inspiration. Pericardium There is no pericardial effusion. Conclusion LVEF is <20%. Severe global hypokinesis The left atrium is moderately dilated. The right atrium is severely dilated. The aortic valve is calcified and displays decreased opening. The aortic valve is calcified and displays decreased opening. Low flow-low gradient aortic stenosis is present. Calculated ISADORA is 0.9cm2. There is mild to moderate tricuspid valve regurgitation noted, RVSP 48mmHg.
--- NOTE | 2025-04-04 19:00 | NUR ---
BEDSIDE SWALLOW EVALUATION COMPLETED. No s/s of aspiration. RECOMMEND: Pureed solids, thin liquids and pills crushed with pureed solids as tolerated. COMPENSATORY STRATEGIES: 1. sit upright during oral intake 2. small bites/sips 3. slow oral intake 4. oral care after each meal RUBBER GOODS REPAIRER reviewed results and recommendations with patient and nurse Parminder. No family present at time of visit. RUBBER [employer] REPAIRER educated patient on risks and consequences of aspiration. Speech therapy not warranted at this time. Mild oral dysphagia likely due to overall debility and poor dentition. All questions answered. Addendum: 04/04/[address]ULI GONZALEZ Amended: Links added.
--- NOTE | 2025-04-04 21:09 | PN ---
CARDIOLOGY Reason for consult: Atrial fibrillation HPI/story at presentation: This is a pleasant 79-year-old male with past medical history as below presents with complaints of a fall. Currently, being treated for this,. To thrive at presentation. Was found to have atrial fibrillation therefore, cardiology was consulted for further evaluation management Past medical history: See below Allergies, Meds See chart Review of systems Review of Systems Constitutional: Negative for chills and fever. HENT: Negative for ear discharge and ear pain. Eyes: Negative for photophobia and discharge. Respiratory: Negative for cough, sputum production and stridor. Cardiovascular: Negative for chest pain and palpitations. Gastrointestinal: Negative for diarrhea and vomiting. Genitourinary: Negative for frequency. Musculoskeletal: Negative for myalgias. Skin: Negative for rash. Neurological: Negative for focal weakness and seizures. Endo/Heme/Allergies: Negative for polydipsia. Psychiatric/Behavioral: Negative for hallucinations. Vitals see chart PHYSICAL EXAMINATION GENERAL: The patient is alert and oriented*3 HEENT: Nonicteric sclerae, non traumatic HEART: Regular rate and rhythm with no murmurs LUNGS: Clear to auscultation bilaterally ABDOMEN: No acute issues, non tender GENITAL, RECTAL: deferred SKIN: No rash NEUROLOGIC: NFND EXTREMITIES: No edema ASSESSMENT ATRIAL FIBRILLATION WITH RVR On Cardizem, 03/2025 CARDIOMYOPATHY EF < 20% FAILURE TO THRIVE, FALL At presentation ELEVATED TROPONIN Likely type II in the setting of underlying issues RESPIRATORY FAILURE On oxygen HYPERTENSION, ALCOHOL USE OTHER MEDICAL PROBLEMS Reviewed PLAN 04/03/2025 continue current medical therapy for now, eventual Cardizem, echo pending, will keep rates less than 120 for now. On metoprolol and Cardizem at this time. Start heparin seen and examined 04/03/2025 at around 8 PM. 04/04/2025 Overall, doing well, no acute cardiac complaints at this time. Rates are better controlled. Mildly confused. Brain MRI pending. MRI with severe depressed EF of less than 20%. Aortic valve velocities are likely underestimated in the setting of underlying cardiomyopathy.Will discuss ischemic eval. Seen and examined 04/04/2025 at around 8 PM. ATTESTATION I was involved substantially in the care of this patient Number and complexity of problems addressed: 1 acute illness with systemic features Amount and or complexity of data Review of prior external note(s) from each unique source: 2+ Ordering of each unique test : 0 Review of the result(s) of each unique test: 2+ Assessment requiring an independent historian(s): No Independent interpretation of test performed by another MD/QHCP/appropriate source (not separately reported) : No Discussion of management or test interpretation with external MD/QHCP/appropriate source (not separately reported) : No Risk status (cardiac, billing related): Moderate Vitals/Labs Vital Signs Date Time Temp Pulse Resp B/P (MAP) Pulse Ox O2 Delivery O2 Flow Rate FiO2 04/04/25 19:20 97.7 80 18 128/84 100 Room Air 04/04/25 08:00 0 21 Laboratory Tests 04/04/25 07:32 Medications Current Medications Diphenhydramine HCl 25 mg Q6H PRN IV; Start 04/02/25 at 15:00; Stop 05/02/25 at 14:59 Acetaminophen 650 mg Q6H PRN PO; Start 04/02/25 at 15:00; Stop 05/02/25 at 14:59 Acetaminophen 650 mg Q4H PRN PO; Start 04/02/25 at 15:00; Stop 05/02/25 at 14:59 Ondansetron HCl 4 mg Q6H PRN IV; Start 04/02/25 at 15:00; Stop 05/02/25 at 14:59 Al Hydroxide/Mg Hydroxide 30 ml Q6H PRN PO; Start 04/02/25 at 15:00; Stop 05/02/25 at 14:59 Lactulose 20 gm BID PRN PO; Start 04/02/25 at 15:00; Stop 05/02/25 at 14:59 Nitroglycerin 0.4 mg PROTOCOL PRN SL; Start 04/02/25 at 15:00; Stop 05/02/25 at 14:59 Guaifenesin 200 mg Q4H PRN PO; Start 04/02/25 at 15:00; Stop 05/02/25 at 14:59 Loperamide HCl 2 mg Q6H PRN PO; Start 04/02/25 at 15:00; Stop 05/02/25 at 14:59 Docusate Sodium 100 mg BID PRN PO; Start 04/02/25 at 15:00; Stop 05/02/25 at 14:59 Polyethylene Glycol 17 gm DAILY PRN PO; Start 04/02/25 at 15:00; Stop 05/02/25 at 14:59 Lidocaine HCl/Al Hydroxide/Mg Hydroxide/ Dicyclomine HCl 20ML OR AD MAALOX P... Q6H PRN PO; Start 04/02/25 at 15:00; Stop 05/02/25 at 14:59 Artificial Tears 1 DROP Q2H PRN OP; Start 04/02/25 at 15:00; Stop 05/02/25 at 14:59 Hydralazine HCl 10 mg ONCE ONCE IV Last administered on 04/02/25at 15:40; Start 04/02/25 at 16:00; Stop 04/02/25 at 16:01; Status DC Thiamine HCl 100 mg DAILY IM Last administered on 04/04/25at 13:11; Start 04/03/25 at 09:00; Stop 04/05/25 at 09:01 Folic Acid 1 mg DAILY PO Last administered on 04/04/25at 13:09; Start 04/03/25 at 09:00; Stop 04/05/25 at 09:01 Multivitamins Therapeutic 1 tab DAILY PO Last administered on 04/04/25at 13:08; Start 04/03/25 at 09:00; Stop 05/03/25 at 08:59 Pharmacy Profile Note 1 each PROTOCOL PRN MISC; Start 04/02/25 at 20:30; Stop 04/09/25 at 20:29 Potassium Chloride 100 ml @ 100 mls/hr AD PRN IV; Start 04/02/25 at 20:30; Stop 05/02/25 at 20:29 Potassium Chloride 20 meq AD PRN PO; Start 04/02/25 at 20:30; Stop 05/02/25 at 20:29 Potassium Chloride 20 meq AD PRN PO; Start 04/02/25 at 20:30; Stop 05/02/25 at 20:29 Magnesium Sulfate 50 ml @ 0 mls/hr PROTOCOL PRN IV; Start 04/02/25 at 20:30; Stop 05/02/25 at 20:29 Diltiazem HCl 25 mg ONCE PRN IVP Last administered on 04/03/25at 17:19; Start 04/03/25 at 14:30; Stop 04/03/25 at 17:19; Status DC Diltiazem HCl 125 mg/Sodium Chloride 125 ml @ 0 mls/hr AD PRN IV; Start 04/03/25 at 14:30; Stop 05/03/25 at 14:29 Metoprolol Tartrate 25 mg BID PO Last administered on 04/04/25at 20:57; Start 04/03/25 at 22:30; Stop 05/03/25 at 22:29 Diazepam 5 mg Q6H PO Last administered on 04/04/25at 20:57; Start 04/04/25 at 07:30; Stop 05/04/25 at 07:29 Heparin Sodium (Porcine) *calculation based on ACTUAL B... AD PRN IV; Start 04/04/25 at 09:30; Stop 04/04/25 at 08:52; Status DC Heparin Sodium/ Dextrose 250 ml @ 0 mls/hr Q6H IV; Start 04/04/25 at 09:30; Stop 04/04/25 at 08:52; Status DC LOPEZ RODRIGUEZ MD Apr 04, 2025 21:09
[2025-04-05] VITALS (9 sets, daily range): BP systolic 122–155; BP diastolic 73–107; PULSE 54–116; RESP 17–19; TEMP 97.4–98.1; O2SAT 97
--- NOTE | 2025-04-05 00:45 | HMCIMG ---
EXAM: MR Brain Without IV Contrast. CLINICAL HISTORY: Cerebrovascular accident. TECHNIQUE: Multiplanar multi-sequence MRI of the brain. CONTRAST: No. COMPARISON: CT scan of the brain. 04/02/2025. FINDINGS: Small focus of restricted diffusion in the right vyas radiata and left centrum semiovale measuring 5 and 2 mm, respectively. Moderate small vessel chronic ischemic changes in bilateral cerebral white matter. No hemorrhage, mass, or mass effect. The ventricular system, sulci, and cisterns appear mildly prominent. No hydrocephalus. No abnormal extra-axial fluid collection is present. The marrow signal within the skull base and calvarium is intact. The paranasal sinuses are clear. Bilateral mastoiditis. IMPRESSION: Small acute infarct in the right vyas radiata and left centrum semiovale. Comparison with the prior CT is not possible due to technical limitations and differences. Moderate small vessel chronic ischemic changes in bilateral cerebral white matter. Age-related cerebral atrophy. Bilateral mastoiditis. /[place]
[2025-04-05 04:26] LABS: IMMATURE GRANULOCYTE ABSOLUTE 0.03 K/uL (0-1); NUCLEATED RED BLOOD CELLS 0.0 % (0.0-0.19); PLATELET COUNT (AUTO) 48 K/uL (130-400); RED BLOOD CELL COUNT(AUTO) 4.38 MIL/uL (4.50-6.20); RED CELL DISTRIBUTION WIDTH 14.4 % (11.0-15.5); WHITE BLOOD COUNT (AUTO) 4.8 K/uL (4.8-10.8)
[2025-04-05 04:41] LABS: ASPARTATE AMINOTRANSFERASE 42.0 U/L (10-37); CREATININE 1.1 mg/dL (0.5-1.3); GLOMERULAR FILTR. RATE CALC 69.0 mL/min (>90); GLUCOSE,RANDOM 97.0 mg/dL (70-105); SODIUM SERUM 132.0 mmol/L (136-145); TOTAL PROTEIN, SERUM 6.2 g/dL (6.0-8.3); UREA NITROGEN, BLOOD 23.0 mg/dL (7-18)
[2025-04-05] MEDS: PoTASSium chl 10% ELIXIR 20MEQ 20 MEQ/15 ML UDCUP PO PRN (06:48)
[2025-04-05] MEDS: MAGNESIUM 2GM PREMIX 50ML 50 ML IV PRN (06:49)
--- NOTE | 2025-04-05 13:52 | PN ---
[facility] PROGRESS NOTE Date Patient Seen: Apr 05, 2025 Time of Visit: 13:40 Supervising Physician: Dr. Vamshi Madrid Primary Care Physician: Self, referral Outpatient Specialists: [ ] Inpatient Consults: Dr. Downing (Cardiology) PROBLEM LIST: Cerebrovascular disease status post CVA confirmed by MRI results. Severe cardiomyopathy echocardiogram 04/03/2025 LVEFless than 20% Atrial fibrillation with RVR Ground level fall, CT head pending, POA Acute metabolic encephalopathy, POA NSTEMI, POA Hypertensive urgency, POA Acute hypoxic respiratory failure, POA Suspected congestive heart failure, POA Suspect CVA verse TIA Failure to thrive, POA Thrombocytopenia, POA Alcohol use, per report patient drinks alcohol daily POA Abuse, tested positive drug screening, POA PLAN: Transferred to med/Surg floor CODE STATUS:DNI/DNR Diet heart healthy Aspirin 325 mg enteric coated daily SCDs bilateral Protonix 40 mg IV daily for GI prophylaxis Case management to assist with placement care home facility INTERVAL HISTORY: 04/03-patient was seen and assessed by myself, awake alert and in no acute distress. Accompanied by patient's bedside nurse, and was joined by patient's 2nd cousin, jeremy Porter who has been taking care of the patient.. Family member expressed and reports that the patient's home life is somewhat unorganized patient has been misusing alcohol and cocaine regularly and has had notable neuro deficits and inability to ambulate or right is bicycle. Upon further investigation found out the patient to be in a new onset atrial fibrillation with RVR. Diagnostic tests ordered: EKG, stat which confirmed atrial fibrillation with RVR. Request cardiac consult. Ordered diltiazem drip, patient then to be transferred to PCCU for management. A.m. labs ordered for tomorrow. Valium 5 mg p.o. q.6 hours scheduled to keep patient relaxed. We will continue with CIWA protocol. 04/04-patient is assessed and examined with Parminder patient's bedside nurse accompanying me, patient is awake and alert. Patient is no acute distress at this time. Patient has unclear thoughts. Patient has declined to take any oral medications or any mild conscious sedation so we can have the MRI. This is a change in the patient's behavior from yesterday. When the patient wanted to be treated for his atrial fib with RVR. Medications are available to be taken to help manage this AFib with RVR acute new onset, with metoprolol 25 mg p.o. b.i.d. in conjunction with a Cardizem drip currently which has been on hold because the patient's heart rate is in the 70s. Cardiology has been consulted, have 48 hours to start patient on some form of anticoagulation therapy, must be balanced with patient's history of recent abuse of alcohol and of cocaine. We will request assistance from case management. A.m. labs have been ordered. 04/05- patient was assessed in seen with contact Tiffany, patient's 2nd cousin, was in the room during my physical examination of the patient. Reviewed and discussed with both patient and family member, diagnostic results including MRI of the brain which indicated the patient has had a recent cerebrovascular accident, a stroke. The patient has had multiple falls prior to this admission to the hospital. Discussed with Tiffany the risks and benefits of anticoagulation therapy. The patient has been recently diagnosed with atrial fibrillation with RVR now atrial fib controlled. Prior to the admission to the hospital the patient has had multiple falls at home. MRI results indicate patient had a stroke in the past resulting in debility patient's inability to ride his bicycle. CHADS-VASc score and has bled were discussed with Tiffany and patient. The patient and bedding discussed this and the patient's code status has changed to DNR/DNI. The patient agrees to taking an aspirin 325 mg enteric-coated daily we will not be started on Eliquis 5 mg p.o. b.i.d.. Based on the patient's functional decline through the admission process, diagnostic tests results, echocardiogram LV EF less than 20%, we will be discussing with patient's cousin bed besides care home facility we will approach palliative care/hospice. Patient will be downgraded transferred out of the PCCU to floor med surge status. REVIEW OF SYSTEMS: Unable to obtain due to alteration in mental status PHYSICAL EXAM: GENERAL: Confused not in acute respiratory distress HEENT: EOMI, Sclera non icteric, moist mucosa NECK: Supple, no JVD, trachea midline LUNGS: Clear breath sounds bilaterally. No wheezes HEART: Irregular rhythm rate controlled, atrial fib. ABD: Abdomen soft, nontender. Bowel sounds present EXT: No clubbing cyanosis or edema NEURO: Confused, unable to answer questions appropriately Vital Signs (last 8hr) Date Time Temp Pulse Resp B/P (MAP) Pulse Ox O2 Delivery O2 Flow Rate FiO2 04/05/25 12:11 98.1 81 18 155/90 92 Room Air 04/05/25 08:05 97.7 104 18 128/94 94 Room Air LABS: Hematology Labs: Test 04/05/25 04:12 Range/Units White Blood Count 4.8 # 4.8-10.8 K/uL Red Blood Count 4.38 L 4.50-6.20 MIL/uL Hemoglobin 13.6 L 14.0-18.0 g/dL Hematocrit 40.6 L 42-54 % Mean Corpuscular Volume 92.7 79-99 fL Mean Corpuscular Hemoglobin 31.1 27.0-33.0 pg Mean Corpuscular Hemoglobin Concent 33.5 32.0-36.0 g/dL Red Cell Distribution Width 14.4 11.0-15.5 % Platelet Count 48 L 130-400 K/uL Mean Platelet Volume 11.1 H 7.5-10.5 fL Immature Granulocyte % (Auto) 0.6 0-1 % Neutrophils (%) (Auto) 48.3 40.0-77.0 % Lymphocytes (%) (Auto) 41.3 21.0-51.0 % Monocytes (%) (Auto) 7.1 3.0-13.0 % Eosinophils (%) (Auto) 1.9 0.0-8.0 % Basophils (%) (Auto) 0.8 0.0-5.0 % Neutrophils # (Auto) 2.3 1.8-7.7 K/uL Lymphocytes # (Auto) 2.0 1.0-4.8 K/uL Monocytes # (Auto) 0.3 0.1-1.0 K/uL Eosinophils # (Auto) 0.09 0.00-0.70 K/uL Basophils # (Auto) 0.04 0.00-0.20 K/uL Absolute Immature Granulocyte (auto 0.03 0-1 K/uL Nucleated Red Blood Cells 0.0 0.0-0.19 % Chemistry Labs: Test 04/05/25 04:12 04/04/25 07:32 04/03/25 16:25 Range/Units Sodium Level 132 L 136-145 mmol/L Potassium Level 3.5 3.5-5.1 mmol/L Chloride Level 101 101-111 mmol/L Carbon Dioxide Level 25 21-32 mmol/L Blood Urea Nitrogen 23 H 7-18 mg/dL Creatinine 1.1 0.5-1.3 mg/dL Glomerular Filtration Rate Calc 69 >90 mL/min Random Glucose 97 70-105 mg/dL Total Calcium 8.4 L 8.5-10.1 mg/dL Magnesium Level 1.70 L 1.80-2.40 mg/dL Total Bilirubin 0.7 # 0.2-1.0 mg/dL Aspartate Amino Transf (AST/SGOT) 42 H 10-37 U/L Alanine Aminotransferase (ALT/SGPT) 24 12-78 U/L Alkaline Phosphatase 69 50-136 U/L Total Protein 6.2 6.0-8.3 g/dL Albumin 2.1 L 3.5-5.0 g/dL Ammonia 11 11-32 umol/L Thyroid Stimulating Hormone (TSH) 2.73 0.36-3.74 uIU/mL Whole Blood Glucose 99 70-110 MG/DL Coagulation Labs: Test 04/04/25 07:32 Range/Units Prothrombin Time 12.3 H 9.6-11.6 SEC Prothromb Time International Ratio 1.18 H 0.85-1.15 Activated Partial Thromboplast Time 34.0 26.3-35.5 SEC DIAGNOSTICS / RADIOLOGY RESULTS: REASON: chf ORDERING PHYSICIAN: FELA DAVIS AGACNP PROCEDURE: ECHO [facility] - ECHO 2-D COMPLETE APPROVED REPORT EXAM: LIMITED Two-dimensional and M-mode echocardiogram with Doppler and color Doppler. INDICATION ICD: congestive heart failure 2D Dimensions RVDd 3.5 cm LVEF(%) 26.6 (>50%) LVED Vol(simp.) 92.4 mL IVSd 1.2 (0.7-1.1cm) FS(%) 12 % LVES Vol(simp.) 73.9 mL LVDd 4.3 (3.8-5.6cm) LA (2D) 4.0 (1.6-4.0cm) LVEF(%, simp.) 20 % PWd 1.5 (0.7-1.1cm) Ao Root(2D) 2.8 (2.0-3.7cm) LA ESV INDEX (BP) 37.22 mL/m2 LVDs 3.8 (2.5-4.0cm) LVOT diam 2.2 (1.8-2.4cm) IVC diam 2.0 cm Deformation Strain Apical 4 -3.9 % Apical 2 -3.7 % Apical 3 -3.8 % Global Strain -3.8 % M-Mode Dimensions EPSS 1.1 cm LA (MM) 4.7 (1.6-4.0cm) Ao Root(MM) 3.0 (2.0-3.7cm) Aortic Valve AoV Vmax 2.1 m/s Ao Peak GR 17.3 mmHg LVOT Vmax 0.4 m/s AoV VTI 0.3 m Ao Mean GR 8.6 mmHg LVOT VTI 0.07 m ISADORA (VMAX) 0.84 cm2 ISADORA (VTI) 0.8 cm2 Mitral Valve MV E Vmax 76.5 cm/s DECEL Time 202 ms MV A Vmax 25.6 cm/s P 1/2 T 86 ms E/A ratio 3.0 MVA (PHT) 2.6 cm2 TDI E/E' Medial 16.5 E/E' Lateral 16.5 Medial E' Peak V 4.64 cm/s Lateral E' Peak V 4.64 cm/s Tricuspid Valve TR Vmax 2.8 m/s RAP (EST) 8 mmHg RVSP 47.6 mmHg TR Peak GR 39.6 mmHg Left Ventricle The left ventricle is normal size. Severe global hypokinesis Mild to moderate left ventricular hypertrophy. LVEF is <20%. The LV diastolic function was unable to be assessed due to atrial arrhythmia. Right Ventricle The right ventricle is normal size. Right ventricular systolic function is mildly reduced. Atria The left atrium is moderately dilated. The right atrium is severely dilated. Aortic Valve The aortic valve is calcified and displays decreased opening. No aortic regurgitation is present. Low flow-low gradient aortic stenosis is present. Calculated ISADORA is 0.9cm2. Mitral Valve The mitral valve is normal in structure. Mitral regurgitation is mild. There is no mitral valve stenosis. Tricuspid Valve The tricuspid valve is normal in structure. There is mild to moderate tricuspid valve regurgitation noted, RVSP 48mmHg. Pulmonic Valve The pulmonary valve is normal in structure. There is no pulmonic valvular regurgitation. Great Vessels The aortic root is normal in size. The IVC is normal in size and collapses <50% with inspiration. Pericardium There is no pericardial effusion. Conclusion LVEF is <20%. Severe global hypokinesis The left atrium is moderately dilated. The right atrium is severely dilated. The aortic valve is calcified and displays decreased opening. The aortic valve is calcified and displays decreased opening. Low flow-low gradient aortic stenosis is present. Calculated ISADORA is 0.9cm2. There is mild to moderate tricuspid valve regurgitation noted, RVSP 48mmHg. DICTATED BY: BILLY SOTO MD DATE: 04/03/25 0730 ELECTRONICALLY SIGNED BY: BILLY SOTO MD DATE: 04/04/25 1605 ATIENT: BECKI ROMERO MR#: [id number] : 1945 SEX: M AGE: 79 LOCATION: [facility] ORDER 164 STATUS: ADM IN REPORT#: [id number] SERVICE [id number] REASON: cva ORDERING PHYSICIAN: TOMMY SMITH MD PROCEDURE: BRAIN WO - MR BRAIN WO CON ADDENDUM REPORT ADDENDUM: Results were shared by telephone at on 01:56 am on 04-05-2025 and acknowledged by patient nurse MS. Mahnaz Wright. /[place] EXAM: MR Brain Without IV Contrast. CLINICAL HISTORY: Cerebrovascular accident. TECHNIQUE: Multiplanar multi-sequence MRI of the brain. CONTRAST: No. COMPARISON: CT scan of the brain. 04/02/2025. FINDINGS: Small focus of restricted diffusion in the right vyas radiata and left centrum semiovale measuring 5 and 2 mm, respectively. Moderate small vessel chronic ischemic changes in bilateral cerebral white matter. No hemorrhage, mass, or mass effect. The ventricular system, sulci, and cisterns appear mildly prominent. No hydrocephalus. No abnormal extra-axial fluid collection is present. The marrow signal within the skull base and calvarium is intact. The paranasal sinuses are clear. Bilateral mastoiditis. IMPRESSION: Small acute infarct in the right vyas radiata and left centrum semiovale. Comparison with the prior CT is not possible due to technical limitations and differences. Moderate small vessel chronic ischemic changes in bilateral cerebral white matter. Age-related cerebral atrophy. Bilateral mastoiditis. /[place] DICTATED BY: BENJI MAY Jr., MD DATE: 04/05/25 015 ELECTRONICALLY SIGNED BY: DATE: EXAM: MR Brain Without IV Contrast. CLINICAL HISTORY: Cerebrovascular accident. TECHNIQUE: Multiplanar multi-sequence MRI of the brain. CONTRAST: No. COMPARISON: CT scan of the brain. 04/02/2025. FINDINGS: Small focus of restricted diffusion in the right vyas radiata and left centrum semiovale measuring 5 and 2 mm, respectively. Moderate small vessel chronic ischemic changes in bilateral cerebral white matter. No hemorrhage, mass, or mass effect. The ventricular system, sulci, and cisterns appear mildly prominent. No hydrocephalus. No abnormal extra-axial fluid collection is present. The marrow signal within the skull base and calvarium is intact. The paranasal sinuses are clear. Bilateral mastoiditis. IMPRESSION: Small acute infarct in the right vyas radiata and left centrum semiovale. Comparison with the prior CT is not possible due to technical limitations and differences. Moderate small vessel chronic ischemic changes in bilateral cerebral white matter. Age-related cerebral atrophy. Bilateral mastoiditis. /[place] DICTATED BY: BENJI MAY Jr., MD DATE: 04/05/25144 ELECTRONICALLY SIGNED BY: BENJI MAY Jr., MD DATE: 04/05/25144 PLAN NEURO: Minimize central acting medications as possible. Maintain fall precautions, adequate lighting during the day PULMONARY: Supplemental 02 as needed. Maintain aspiration precautions at all times CARDIOVASCULAR: Follow hemodynamics. Vital signs per facility protocol GI & NUTRITION: Continue with nutritional support. Continue stool softeners and laxatives as needed. KIDNEYS & ELECTROLYTES: Strict monitoring of intake, output and overall fluid balance. Avoid nephrotoxic medications to the extent possible. Medications to be dosed according to renal function. Monitor electrolytes and replace as needed ENDOCRINE: Maintain blood glucose between 100-180 at all times. Hypoglycemia protocol in place INFECTIOUS DISEASE: Trend temperature, WBC and procalcitonin level Follow cultures, deescalate antibiotics as soon as possible. Panculture if new onset fever ONCOLOGY/HEMATOLOGY/COAGULATION: Monitor for s/s of bleeding Monitor hemoglobin, coagulation studies as needed SKIN: Pressure ulcer prevention per facility protocol Specialty mattress ORTHO/REHAB: Continue PT/OT Prophylaxis: Continue GI and DVT prophylaxis Code Status: Full Resuscitation Disposition: TBD 45 minutes critical care time was utilized because the patient has criteria involves to systems cardiovascular and pulmonary systems. Additionally, neurovascular suspect TIA versus CVA recently. My assessment findings, diagnostic tests results, laboratory results, patient's recent health history was reviewed and discussed with my supervising physician, Dr Tommy Smith and an interventional plan was developed. CHADWICK WALTERS AGACNP Apr 05, 2025 13:52
--- NOTE | 2025-04-05 16:38 | NUR ---
SPEECH NOTE: FOLLOW UP JAVA PROGRAMMING PROFESSOR coordinated with nurse Brandon. As per nurse, patient tolerating pureed solids with no overt s/s of aspiration. Pt however with poor oral intake. Please re-consult speech therapy services if patient presents with s/s of aspiration with oral intake. All questions answered. Addendum: 04/05/[address]I GONZALEZ Amended: Links added.
[2025-04-05] MEDS: ASPIRIN 325MG EC TAB PO SCH (17:30)
--- NOTE | 2025-04-05 23:44 | PN ---
CARDIOLOGY Reason for consult: Atrial fibrillation HPI/story at presentation: This is a pleasant 79-year-old male with past medical history as below presents with complaints of a fall. Currently, being treated for this,. To thrive at presentation. Was found to have atrial fibrillation therefore, cardiology was consulted for further evaluation management Past medical history: See below Allergies, Meds See chart Review of systems Review of Systems Constitutional: Negative for chills and fever. HENT: Negative for ear discharge and ear pain. Eyes: Negative for photophobia and discharge. Respiratory: Negative for cough, sputum production and stridor. Cardiovascular: Negative for chest pain and palpitations. Gastrointestinal: Negative for diarrhea and vomiting. Genitourinary: Negative for frequency. Musculoskeletal: Negative for myalgias. Skin: Negative for rash. Neurological: Negative for focal weakness and seizures. Endo/Heme/Allergies: Negative for polydipsia. Psychiatric/Behavioral: Negative for hallucinations. Vitals see chart PHYSICAL EXAMINATION GENERAL: The patient is alert and oriented*3 HEENT: Nonicteric sclerae, non traumatic HEART: Regular rate and rhythm with no murmurs LUNGS: Clear to auscultation bilaterally ABDOMEN: No acute issues, non tender GENITAL, RECTAL: deferred SKIN: No rash NEUROLOGIC: NFND EXTREMITIES: No edema ASSESSMENT ATRIAL FIBRILLATION WITH RVR On Cardizem, 03/2025 CARDIOMYOPATHY EF < 20% CVA MRI 04/13 FAILURE TO THRIVE, FALL At presentation ELEVATED TROPONIN Likely type II in the setting of underlying issues RESPIRATORY FAILURE On oxygen HYPERTENSION, ALCOHOL USE OTHER MEDICAL PROBLEMS Reviewed PLAN 04/03/2025 continue current medical therapy for now, eventual Cardizem, echo pending, will keep rates less than 120 for now. On metoprolol and Cardizem at this time. Start heparin seen and examined 04/03/2025 at around 8 PM. 04/04/2025 Overall, doing well, no acute cardiac complaints at this time. Rates are better controlled. Mildly confused. Brain MRI pending. MRI with severe depressed EF of less than 20%. Aortic valve velocities are likely underestimated in the setting of underlying cardiomyopathy.Will discuss ischemic eval. Seen and examined 04/04/2025 at around 8 PM. 04/05/2025 MRI was abnormal with evidence of a possible acute stroke, ejection fraction less than 20%. Will watch for neurological recovery, get neurology clearance for ischemic evaluation and DAPT. Seen and examined 04/05/2025 at around 9 PM. ATTESTATION I was involved substantially in the care of this patient Number and complexity of problems addressed: 1 acute illness with systemic features Amount and or complexity of data Review of prior external note(s) from each unique source: 2+ Ordering of each unique test : 0 Review of the result(s) of each unique test: 2+ Assessment requiring an independent historian(s): No Independent interpretation of test performed by another MD/QHCP/appropriate source (not separately reported) : No Discussion of management or test interpretation with external MD/QHCP/appropriate source (not separately reported) : No Risk status (cardiac, billing related): Moderate Vitals/Labs Vital Signs Date Time Temp Pulse Resp B/P (MAP) Pulse Ox O2 Delivery O2 Flow Rate FiO2 04/05/25 23:34 97.9 116 19 129/99 98 Room Air 21 04/05/25 15:44 0 Laboratory Tests 04/05/25 04:12 Medications Current Medications Diphenhydramine HCl 25 mg Q6H PRN IV Last administered on 04/05/25at 11:00; Start 04/02/25 at 15:00; Stop 05/02/25 at 14:59 Acetaminophen 650 mg Q6H PRN PO; Start 04/02/25 at 15:00; Stop 05/02/25 at 14:59 Acetaminophen 650 mg Q4H PRN PO; Start 04/02/25 at 15:00; Stop 05/02/25 at 14:59 Ondansetron HCl 4 mg Q6H PRN IV; Start 04/02/25 at 15:00; Stop 05/02/25 at 14:59 Al Hydroxide/Mg Hydroxide 30 ml Q6H PRN PO; Start 04/02/25 at 15:00; Stop 05/02/25 at 14:59 Lactulose 20 gm BID PRN PO; Start 04/02/25 at 15:00; Stop 05/02/25 at 14:59 Nitroglycerin 0.4 mg PROTOCOL PRN SL; Start 04/02/25 at 15:00; Stop 05/02/25 at 14:59 Guaifenesin 200 mg Q4H PRN PO; Start 04/02/25 at 15:00; Stop 05/02/25 at 14:59 Loperamide HCl 2 mg Q6H PRN PO; Start 04/02/25 at 15:00; Stop 05/02/25 at 14:59 Docusate Sodium 100 mg BID PRN PO Last administered on 04/05/25at 11:05; Start 04/02/25 at 15:00; Stop 05/02/25 at 14:59 Polyethylene Glycol 17 gm DAILY PRN PO; Start 04/02/25 at 15:00; Stop 05/02/25 at 14:59 Lidocaine HCl/Al Hydroxide/Mg Hydroxide/ Dicyclomine HCl 20ML OR AD MAALOX P... Q6H PRN PO; Start 04/02/25 at 15:00; Stop 05/02/25 at 14:59 Artificial Tears 1 DROP Q2H PRN OP; Start 04/02/25 at 15:00; Stop 05/02/25 at 14:59 Hydralazine HCl 10 mg ONCE ONCE IV Last administered on 04/02/25at 15:40; Start 04/02/25 at 16:00; Stop 04/02/25 at 16:01; Status DC Thiamine HCl 100 mg DAILY IM Last administered on 04/05/25at 10:54; Start 04/03/25 at 09:00; Stop 04/05/25 at 09:01; Status DC Folic Acid 1 mg DAILY PO Last administered on 04/04/25at 13:09; Start 04/03/25 at 09:00; Stop 04/05/25 at 09:01; Status DC Multivitamins Therapeutic 1 tab DAILY PO Last administered on 04/05/25at 10:55; Start 04/03/25 at 09:00; Stop 05/03/25 at 08:59 Pharmacy Profile Note 1 each PROTOCOL PRN MISC; Start 04/02/25 at 20:30; Stop 04/09/25 at 20:29 Potassium Chloride 100 ml @ 100 mls/hr AD PRN IV; Start 04/02/25 at 20:30; Stop 05/02/25 at 20:29 Potassium Chloride 20 meq AD PRN PO Last administered on 04/05/25at 06:48; Start 04/02/25 at 20:30; Stop 05/02/25 at 20:29 Potassium Chloride 20 meq AD PRN PO; Start 04/02/25 at 20:30; Stop 05/02/25 at 20:29 Magnesium Sulfate 50 ml @ 0 mls/hr PROTOCOL PRN IV Last administered on 04/05/25at 06:49; Start 04/02/25 at 20:30; Stop 05/02/25 at 20:29 Diltiazem HCl 25 mg ONCE PRN IVP Last administered on 04/03/25at 17:19; Start 04/03/25 at 14:30; Stop 04/03/25 at 17:19; Status DC Diltiazem HCl 125 mg/Sodium Chloride 125 ml @ 0 mls/hr AD PRN IV; Start 04/03/25 at 14:30; Stop 04/05/25 at 14:05; Status DC Metoprolol Tartrate 25 mg BID PO Last administered on 04/05/25at 21:39; Start 04/03/25 at 22:30; Stop 05/03/25 at 22:29 Diazepam 5 mg Q6H PO Last administered on 04/05/25at 06:28; Start 04/04/25 at 07:30; Stop 04/05/25 at 14:05; Status DC Heparin Sodium (Porcine) *calculation based on ACTUAL B... AD PRN IV; Start 04/04/25 at 09:30; Stop 04/04/25 at 08:52; Status DC Heparin Sodium/ Dextrose 250 ml @ 0 mls/hr Q6H IV; Start 04/04/25 at 09:30; Stop 04/04/25 at 08:52; Status DC Diltiazem HCl 120 mg Q24H PO; Start 04/05/25 at 14:00; Stop 04/05/25 at 15:09; Status DC Diltiazem HCl 120 mg Q24H PO; Start 04/05/25 at 16:00; Stop 05/05/25 at 15:59 Aspirin 325 mg DAILY PO; Start 04/05/25 at 17:30; Stop 05/05/25 at 17:29 LOPEZ RODRIGUEZ MD Apr 05, 2025 23:44
[2025-04-06] VITALS (7 sets, daily range): BP systolic 140–168; BP diastolic 63–112; PULSE 58–94; RESP 20–24; TEMP 97.6–98; O2SAT 96–97
--- NOTE | 2025-04-06 05:30 | NUR ---
report given to maddi palacio pt to [facility]
--- NOTE | 2025-04-06 05:54 | NUR ---
PT ARRIVED TO FLOOR, AA0X2, NO DISTRESS NOTED RESPIRATIONS EVEN AND UNLABORED, DENIES PAIN OR DISCOMFORT, IV SALINE LOCKED, BED LOW AND LOCKED
[2025-04-06 07:01] LABS: NUCLEATED RED BLOOD CELLS 0.0 % (0.0-0.19); PLATELET COUNT (AUTO) 59.0 K/uL (130-400); RED BLOOD CELL COUNT(AUTO) 4.74 MIL/uL (4.50-6.20); RED CELL DISTRIBUTION WIDTH 14.4 % (11.0-15.5); WHITE BLOOD COUNT (AUTO) 5.4 K/uL (4.8-10.8)
[2025-04-06 07:34] LABS: ASPARTATE AMINOTRANSFERASE 37.0 U/L (10-37); CREATININE 1.2 mg/dL (0.5-1.3); GLOMERULAR FILTR. RATE CALC 62.0 mL/min (>90); GLUCOSE,RANDOM 95.0 mg/dL (70-105); SODIUM SERUM 133.0 mmol/L (136-145); TOTAL PROTEIN, SERUM 6.4 g/dL (6.0-8.3); UREA NITROGEN, BLOOD 22.0 mg/dL (7-18)
[2025-04-06] MEDS: PoTASSium chloRIDE 20MEQ ER 20 MEQ ERTAB PO PRN (08:54)
--- NOTE | 2025-04-06 17:54 | PN ---
CARDIOLOGY Reason for consult: Atrial fibrillation HPI/story at presentation: This is a pleasant 79-year-old male with past medical history as below presents with complaints of a fall. Currently, being treated for this,. To thrive at presentation. Was found to have atrial fibrillation therefore, cardiology was consulted for further evaluation management Past medical history: See below Allergies, Meds See chart Review of systems Review of Systems Constitutional: Negative for chills and fever. HENT: Negative for ear discharge and ear pain. Eyes: Negative for photophobia and discharge. Respiratory: Negative for cough, sputum production and stridor. Cardiovascular: Negative for chest pain and palpitations. Gastrointestinal: Negative for diarrhea and vomiting. Genitourinary: Negative for frequency. Musculoskeletal: Negative for myalgias. Skin: Negative for rash. Neurological: Negative for focal weakness and seizures. Endo/Heme/Allergies: Negative for polydipsia. Psychiatric/Behavioral: Negative for hallucinations. Vitals see chart PHYSICAL EXAMINATION GENERAL: The patient is alert and oriented*3 HEENT: Nonicteric sclerae, non traumatic HEART: Regular rate and rhythm with no murmurs LUNGS: Clear to auscultation bilaterally ABDOMEN: No acute issues, non tender GENITAL, RECTAL: deferred SKIN: No rash NEUROLOGIC: NFND EXTREMITIES: No edema ASSESSMENT ATRIAL FIBRILLATION WITH RVR On Cardizem, 03/2025 CARDIOMYOPATHY EF < 20% CVA MRI 04/13 FAILURE TO THRIVE, FALL At presentation ELEVATED TROPONIN Likely type II in the setting of underlying issues RESPIRATORY FAILURE On oxygen HYPERTENSION, ALCOHOL USE OTHER MEDICAL PROBLEMS Reviewed PLAN 04/03/2025 continue current medical therapy for now, eventual Cardizem, echo pending, will keep rates less than 120 for now. On metoprolol and Cardizem at this time. Start heparin seen and examined 04/03/2025 at around 8 PM. 04/04/2025 Overall, doing well, no acute cardiac complaints at this time. Rates are better controlled. Mildly confused. Brain MRI pending. MRI with severe depressed EF of less than 20%. Aortic valve velocities are likely underestimated in the setting of underlying cardiomyopathy.Will discuss ischemic eval. Seen and examined 04/04/2025 at around 8 PM. 04/05/2025 MRI was abnormal with evidence of a possible acute stroke, ejection fraction less than 20%. Will watch for neurological recovery, get neurology clearance for ischemic evaluation and DAPT. Seen and examined 04/05/2025 at around 9 PM. 04/06/2025 No improvement in current mental status. Will continue with conservative management Patient with frequent falls with high risk for oral anticoagulation ATTESTATION Case discussed with Dr. Downing Vitals/Labs Vital Signs Date Time Temp Pulse Resp B/P (MAP) Pulse Ox O2 Delivery O2 Flow Rate FiO2 04/06/25 12:30 97.7 83 20 155/112 98 Room Air 04/06/25 08:00 0 21 Laboratory Tests 04/06/25 06:41 Medications Current Medications Diphenhydramine HCl 25 mg Q6H PRN IV Last administered on 04/05/25at 11:00; Start 04/02/25 at 15:00; Stop 05/02/25 at 14:59 Acetaminophen 650 mg Q6H PRN PO; Start 04/02/25 at 15:00; Stop 05/02/25 at 14:59 Acetaminophen 650 mg Q4H PRN PO; Start 04/02/25 at 15:00; Stop 05/02/25 at 14:59 Ondansetron HCl 4 mg Q6H PRN IV; Start 04/02/25 at 15:00; Stop 05/02/25 at 14:59 Al Hydroxide/Mg Hydroxide 30 ml Q6H PRN PO; Start 04/02/25 at 15:00; Stop 05/02/25 at 14:59 Lactulose 20 gm BID PRN PO; Start 04/02/25 at 15:00; Stop 05/02/25 at 14:59 Nitroglycerin 0.4 mg PROTOCOL PRN SL; Start 04/02/25 at 15:00; Stop 05/02/25 at 14:59 Guaifenesin 200 mg Q4H PRN PO; Start 04/02/25 at 15:00; Stop 05/02/25 at 14:59 Loperamide HCl 2 mg Q6H PRN PO; Start 04/02/25 at 15:00; Stop 05/02/25 at 14:59 Docusate Sodium 100 mg BID PRN PO Last administered on 04/05/25at 11:05; Start 04/02/25 at 15:00; Stop 05/02/25 at 14:59 Polyethylene Glycol 17 gm DAILY PRN PO; Start 04/02/25 at 15:00; Stop 05/02/25 at 14:59 Lidocaine HCl/Al Hydroxide/Mg Hydroxide/ Dicyclomine HCl 20ML OR AD MAALOX P... Q6H PRN PO; Start 04/02/25 at 15:00; Stop 05/02/25 at 14:59 Artificial Tears 1 DROP Q2H PRN OP; Start 04/02/25 at 15:00; Stop 05/02/25 at 14:59 Hydralazine HCl 10 mg ONCE ONCE IV Last administered on 04/02/25at 15:40; Start 04/02/25 at 16:00; Stop 04/02/25 at 16:01; Status DC Thiamine HCl 100 mg DAILY IM Last administered on 04/05/25at 10:54; Start 04/03/25 at 09:00; Stop 04/05/25 at 09:01; Status DC Folic Acid 1 mg DAILY PO Last administered on 04/04/25at 13:09; Start 04/03/25 at 09:00; Stop 04/05/25 at 09:01; Status DC Multivitamins Therapeutic 1 tab DAILY PO Last administered on 04/06/25at 08:53; Start 04/03/25 at 09:00; Stop 05/03/25 at 08:59 Pharmacy Profile Note 1 each PROTOCOL PRN MISC; Start 04/02/25 at 20:30; Stop 04/09/25 at 20:29 Potassium Chloride 100 ml @ 100 mls/hr AD PRN IV; Start 04/02/25 at 20:30; Stop 05/02/25 at 20:29 Potassium Chloride 20 meq AD PRN PO Last administered on 04/05/25at 06:48; Start 04/02/25 at 20:30; Stop 05/02/25 at 20:29 Potassium Chloride 20 meq AD PRN PO Last administered on 04/06/25at 17:38; Start 04/02/25 at 20:30; Stop 05/02/25 at 20:29 Magnesium Sulfate 50 ml @ 0 mls/hr PROTOCOL PRN IV Last administered on 04/05/25at 06:49; Start 04/02/25 at 20:30; Stop 05/02/25 at 20:29 Diltiazem HCl 25 mg ONCE PRN IVP Last administered on 04/03/25at 17:19; Start 04/03/25 at 14:30; Stop 04/03/25 at 17:19; Status DC Diltiazem HCl 125 mg/Sodium Chloride 125 ml @ 0 mls/hr AD PRN IV; Start 04/03/25 at 14:30; Stop 04/05/25 at 14:05; Status DC Metoprolol Tartrate 25 mg BID PO Last administered on 04/06/25at 08:54; Start 04/03/25 at 22:30; Stop 05/03/25 at 22:29 Diazepam 5 mg Q6H PO Last administered on 04/05/25at 06:28; Start 04/04/25 at 07:30; Stop 04/05/25 at 14:05; Status DC Heparin Sodium (Porcine) *calculation based on ACTUAL B... AD PRN IV; Start 04/04/25 at 09:30; Stop 04/04/25 at 08:52; Status DC Heparin Sodium/ Dextrose 250 ml @ 0 mls/hr Q6H IV; Start 04/04/25 at 09:30; Stop 04/04/25 at 08:52; Status DC Diltiazem HCl 120 mg Q24H PO; Start 04/05/25 at 14:00; Stop 04/05/25 at 15:09; Status DC Diltiazem HCl 120 mg Q24H PO Last administered on 04/06/25at 16:06; Start 04/05/25 at 16:00; Stop 05/05/25 at 15:59 Aspirin 325 mg DAILY PO Last administered on 04/06/25at 08:54; Start 04/05/25 at 17:30; Stop 05/05/25 at 17:29 [facility] Apr 06, 2025 17:54
--- NOTE | 2025-04-06 23:04 | PN ---
[facility] PROGRESS NOTE Date Patient Seen: Apr 06, 2025 Time of Visit: 23:04 Supervising Physician: Dr. Vamshi Madrid Primary Care Physician: Self, referral Outpatient Specialists: [ ] Inpatient Consults: Dr. Downing (Cardiology) PROBLEM LIST: Cerebrovascular disease status post CVA confirmed by MRI results. Severe cardiomyopathy echocardiogram 04/03/2025 LVEFless than 20% Atrial fibrillation with RVR Ground level fall, CT head pending, POA Acute metabolic encephalopathy, POA NSTEMI, POA Hypertensive urgency, POA Acute hypoxic respiratory failure, POA Suspected congestive heart failure, POA Suspect CVA verse TIA Failure to thrive, POA Thrombocytopenia, POA Alcohol use, per report patient drinks alcohol daily POA Abuse, tested positive drug screening, POA PLAN: Transferred to med/Surg floor CODE STATUS:DNI/DNR Diet heart healthy Aspirin 325 mg enteric coated daily Case management to assist with placement group home facility INTERVAL HISTORY: 04/03-patient was seen and assessed by myself, awake alert and in no acute distress. Accompanied by patient's bedside nurse, and was joined by patient's 2nd cousin, jeremy Porter who has been taking care of the patient.. Family member expressed and reports that the patient's home life is somewhat unorganized patient has been misusing alcohol and cocaine regularly and has had notable neuro deficits and inability to ambulate or right is bicycle. Upon further investigation found out the patient to be in a new onset atrial fibrillation with RVR. Diagnostic tests ordered: EKG, stat which confirmed atrial fibrillation with RVR. Request cardiac consult. Ordered diltiazem drip, patient then to be transferred to PCCU for management. A.m. labs ordered for tomorrow. Valium 5 mg p.o. q.6 hours scheduled to keep patient relaxed. We will continue with CIWA protocol. 04/04-patient is assessed and examined with Parminder patient's bedside nurse accompanying me, patient is awake and alert. Patient is no acute distress at this time. Patient has unclear thoughts. Patient has declined to take any oral medications or any mild conscious sedation so we can have the MRI. This is a change in the patient's behavior from yesterday. When the patient wanted to be treated for his atrial fib with RVR. Medications are available to be taken to help manage this AFib with RVR acute new onset, with metoprolol 25 mg p.o. b.i.d. in conjunction with a Cardizem drip currently which has been on hold because the patient's heart rate is in the 70s. Cardiology has been consulted, have 48 hours to start patient on some form of anticoagulation therapy, must be balanced with patient's history of recent abuse of alcohol and of cocaine. We will request assistance from case management. A.m. labs have been ordered. 04/05- patient was assessed in seen with contact Tiffany, patient's 2nd cousin, was in the room during my physical examination of the patient. Reviewed and discussed with both patient and family member, diagnostic results including MRI of the brain which indicated the patient has had a recent cerebrovascular accident, a stroke. The patient has had multiple falls prior to this admission to the hospital. Discussed with Tiffany the risks and benefits of anticoagulation therapy. The patient has been recently diagnosed with atrial fibrillation with RVR now atrial fib controlled. Prior to the admission to the hospital the patient has had multiple falls at home. MRI results indicate patient had a stroke in the past resulting in debility patient's inability to ride his bicycle. CHADS-VASc score and has bled were discussed with Tiffany and patient. The patient and bedding discussed this and the patient's code status has changed to DNR/DNI. The patient agrees to taking an aspirin 325 mg enteric-coated daily we will not be started on Eliquis 5 mg p.o. b.i.d.. Based on the patient's functional decline through the admission process, diagnostic tests results, echocardiogram LV EF less than 20%, we will be discussing with patient's cousin bed besides group home facility we will approach palliative care/hospice. Patient will be downgraded transferred out of the PCCU to floor med surge status. 04/06-assessed and seen resting in bed harbor bed is elevated. Reviewed and discussed lab results diagnostic tests results, vital signs treatment plan with patient and 2nd cousin, Tiffany. Plan patient to be transferred to group home facility code status is DNR/DNI. The patient's guarded condition very poor prognosis patient are thinking about going to hospice incentive group home facility we will follow up with them tomorrow, Tuesday. Case management working on placement. A.m. labs ordered. REVIEW OF SYSTEMS: Unable to obtain due to alteration in mental status PHYSICAL EXAM: GENERAL: Confused not in acute respiratory distress HEENT: EOMI, Sclera non icteric, moist mucosa NECK: Supple, no JVD, trachea midline LUNGS: Clear breath sounds bilaterally. No wheezes HEART: Irregular rhythm rate controlled, atrial fib. ABD: Abdomen soft, nontender. Bowel sounds present EXT: No clubbing cyanosis or edema NEURO: Confused, unable to answer questions appropriately Vital Signs (last 8hr) Date Time Temp Pulse Resp B/P (MAP) Pulse Ox O2 Delivery O2 Flow Rate FiO2 04/06/25 16:25 97.9 94 20 140/97 99 Room Air LABS: Hematology Labs: Test 04/06/25 06:41 04/05/25 04:12 Range/Units White Blood Count 5.4 4.8-10.8 K/uL Red Blood Count 4.74 4.50-6.20 MIL/uL Hemoglobin 14.8 14.0-18.0 g/dL Hematocrit 44.1 42-54 % Mean Corpuscular Volume 93.0 79-99 fL Mean Corpuscular Hemoglobin 31.2 27.0-33.0 pg Mean Corpuscular Hemoglobin Concent 33.6 32.0-36.0 g/dL Red Cell Distribution Width 14.4 11.0-15.5 % Platelet Count 59 L 130-400 K/uL Mean Platelet Volume 11.1 H 7.5-10.5 fL Nucleated Red Blood Cells 0.0 0.0-0.19 % Immature Granulocyte % (Auto) 0.6 0-1 % Neutrophils (%) (Auto) 48.3 40.0-77.0 % Lymphocytes (%) (Auto) 41.3 21.0-51.0 % Monocytes (%) (Auto) 7.1 3.0-13.0 % Eosinophils (%) (Auto) 1.9 0.0-8.0 % Basophils (%) (Auto) 0.8 0.0-5.0 % Neutrophils # (Auto) 2.3 1.8-7.7 K/uL Lymphocytes # (Auto) 2.0 1.0-4.8 K/uL Monocytes # (Auto) 0.3 0.1-1.0 K/uL Eosinophils # (Auto) 0.09 0.00-0.70 K/uL Basophils # (Auto) 0.04 0.00-0.20 K/uL Absolute Immature Granulocyte (auto 0.03 0-1 K/uL Chemistry Labs: Test 04/06/25 20:43 04/06/25 06:41 04/05/25 04:12 Range/Units Whole Blood Glucose 139 H 70-110 MG/DL Sodium Level 133 L 136-145 mmol/L Potassium Level 3.6 3.5-5.1 mmol/L Chloride Level 102 101-111 mmol/L Carbon Dioxide Level 25 21-32 mmol/L Blood Urea Nitrogen 22 H 7-18 mg/dL Creatinine 1.2 0.5-1.3 mg/dL Glomerular Filtration Rate Calc 62 >90 mL/min Random Glucose 95 70-105 mg/dL Total Calcium 8.4 L 8.5-10.1 mg/dL Total Bilirubin 1.0 0.2-1.0 mg/dL Aspartate Amino Transf (AST/SGOT) 37 10-37 U/L Alanine Aminotransferase (ALT/SGPT) 21 12-78 U/L Alkaline Phosphatase 58 50-136 U/L Total Protein 6.4 6.0-8.3 g/dL Albumin 2.1 L 3.5-5.0 g/dL Magnesium Level 1.70 L 1.80-2.40 mg/dL DIAGNOSTICS / RADIOLOGY RESULTS: [ ] PLAN NEURO: Minimize central acting medications as possible. Maintain fall precautions, adequate lighting during the day PULMONARY: Supplemental 02 as needed. Maintain aspiration precautions at all times CARDIOVASCULAR: Follow hemodynamics. Vital signs per facility protocol GI & NUTRITION: Continue with nutritional support. Continue stool softeners and laxatives as needed. KIDNEYS & ELECTROLYTES: Strict monitoring of intake, output and overall fluid balance. Avoid nephrotoxic medications to the extent possible. Medications to be dosed according to renal function. Monitor electrolytes and replace as needed ENDOCRINE: Maintain blood glucose between 100-180 at all times. Hypoglycemia protocol in place INFECTIOUS DISEASE: Trend temperature, WBC and procalcitonin level Follow cultures, deescalate antibiotics as soon as possible. Panculture if new onset fever ONCOLOGY/HEMATOLOGY/COAGULATION: Monitor for s/s of bleeding Monitor hemoglobin, coagulation studies as needed SKIN: Pressure ulcer prevention per facility protocol Specialty mattress ORTHO/REHAB: Continue PT/OT Prophylaxis: Continue GI and DVT prophylaxis Code Status: Full Resuscitation Disposition: TBD 45 minutes critical care time was utilized because the patient has criteria involves to systems cardiovascular and pulmonary systems. Additionally, neurovascular suspect TIA versus CVA recently. My assessment findings, diagnostic tests results, laboratory results, patient's recent health history was reviewed and discussed with my supervising physician, Dr Farzana Smith and an interventional plan was developed. CHADWICK WALTERS AGACNP Apr 06, 2025 23:04
[2025-04-07] VITALS (7 sets, daily range): BP systolic 116–133; BP diastolic 69–89; PULSE 45–97; RESP 16–18; TEMP 97.7–99.1; O2SAT 94–99
[2025-04-07 06:29] LABS: NUCLEATED RED BLOOD CELLS 0.0 % (0.0-0.19); PLATELET COUNT (AUTO) 52.0 K/uL (130-400); RED BLOOD CELL COUNT(AUTO) 4.38 MIL/uL (4.50-6.20); RED CELL DISTRIBUTION WIDTH 14.5 % (11.0-15.5); WHITE BLOOD COUNT (AUTO) 5.3 K/uL (4.8-10.8)
[2025-04-07 06:44] LABS: ASPARTATE AMINOTRANSFERASE 36.0 U/L (10-37); CREATININE 1.1 mg/dL (0.5-1.3); GLOMERULAR FILTR. RATE CALC 69.0 mL/min (>90); GLUCOSE,RANDOM 108.0 mg/dL (70-105); SODIUM SERUM 137.0 mmol/L (136-145); TOTAL PROTEIN, SERUM 6.1 g/dL (6.0-8.3); UREA NITROGEN, BLOOD 24.0 mg/dL (7-18)
--- NOTE | 2025-04-07 14:00 | NUR ---
CM NOTE CAlled by nurse Suggs to assist with followup on DNR, met with pt and with cousin Tiffany Munoz, states that cousin Tiffany is closest relative and agrees that she sign for him for consents, no other family member available. Tiffany Clements cousin states has been explained by Onesimo ALVAREZ to both pt and herself on DNR status . pt understands need for Form for DNR, patient signed DNR form and wishes to be a DNR status. and agrees that Tiffany Clements can sign form DNR as well. this cm spoke to Jes LOZA on above and in agreement to obtain both to sign.
--- NOTE | 2025-04-07 18:27 | PN ---
CARDIOLOGY Reason for consult: Atrial fibrillation HPI/story at presentation: This is a pleasant 79-year-old male with past medical history as below presents with complaints of a fall. Currently, being treated for this,. To thrive at presentation. Was found to have atrial fibrillation therefore, cardiology was consulted for further evaluation management Past medical history: See below Allergies, Meds See chart Review of systems Review of Systems Constitutional: Negative for chills and fever. HENT: Negative for ear discharge and ear pain. Eyes: Negative for photophobia and discharge. Respiratory: Negative for cough, sputum production and stridor. Cardiovascular: Negative for chest pain and palpitations. Gastrointestinal: Negative for diarrhea and vomiting. Genitourinary: Negative for frequency. Musculoskeletal: Negative for myalgias. Skin: Negative for rash. Neurological: Negative for focal weakness and seizures. Endo/Heme/Allergies: Negative for polydipsia. Psychiatric/Behavioral: Negative for hallucinations. Vitals see chart PHYSICAL EXAMINATION GENERAL: The patient is alert and oriented*3 HEENT: Nonicteric sclerae, non traumatic HEART: Regular rate and rhythm with no murmurs LUNGS: Clear to auscultation bilaterally ABDOMEN: No acute issues, non tender GENITAL, RECTAL: deferred SKIN: No rash NEUROLOGIC: NFND EXTREMITIES: No edema ASSESSMENT ATRIAL FIBRILLATION WITH RVR On Cardizem, 03/2025 CARDIOMYOPATHY EF < 20% CVA MRI 04/13 FAILURE TO THRIVE, FALL At presentation ELEVATED TROPONIN Likely type II in the setting of underlying issues RESPIRATORY FAILURE On oxygen HYPERTENSION, ALCOHOL USE OTHER MEDICAL PROBLEMS Reviewed PLAN 04/03/2025 continue current medical therapy for now, eventual Cardizem, echo pending, will keep rates less than 120 for now. On metoprolol and Cardizem at this time. Start heparin seen and examined 04/03/2025 at around 8 PM. 04/04/2025 Overall, doing well, no acute cardiac complaints at this time. Rates are better controlled. Mildly confused. Brain MRI pending. MRI with severe depressed EF of less than 20%. Aortic valve velocities are likely underestimated in the setting of underlying cardiomyopathy.Will discuss ischemic eval. Seen and examined 04/04/2025 at around 8 PM. 04/05/2025 MRI was abnormal with evidence of a possible acute stroke, ejection fraction less than 20%. Will watch for neurological recovery, get neurology clearance for ischemic evaluation and DAPT. Seen and examined 04/05/2025 at around 9 PM. 04/06/2025 No improvement in current mental status. Will continue with conservative management Patient with frequent falls with high risk for oral anticoagulation 04/07/2025 Mental status declining No interventions from cardiology standpoint patient is too high risk to start DOAC at this time. ATTESTATION Case discussed with Dr. Downing Vitals/Labs Vital Signs Date Time Temp Pulse Resp B/P (MAP) Pulse Ox O2 Delivery O2 Flow Rate FiO2 04/07/25 11:45 97.7 80 16 133/89 99 Room Air 04/07/25 09:15 0 21 Laboratory Tests 04/07/25 06:08 Medications Current Medications Diphenhydramine HCl 25 mg Q6H PRN IV Last administered on 04/05/25at 11:00; Start 04/02/25 at 15:00; Stop 05/02/25 at 14:59 Acetaminophen 650 mg Q6H PRN PO; Start 04/02/25 at 15:00; Stop 05/02/25 at 14:59 Acetaminophen 650 mg Q4H PRN PO; Start 04/02/25 at 15:00; Stop 05/02/25 at 14:59 Ondansetron HCl 4 mg Q6H PRN IV; Start 04/02/25 at 15:00; Stop 05/02/25 at 14:59 Al Hydroxide/Mg Hydroxide 30 ml Q6H PRN PO; Start 04/02/25 at 15:00; Stop 05/02/25 at 14:59 Lactulose 20 gm BID PRN PO; Start 04/02/25 at 15:00; Stop 05/02/25 at 14:59 Nitroglycerin 0.4 mg PROTOCOL PRN SL; Start 04/02/25 at 15:00; Stop 05/02/25 at 14:59 Guaifenesin 200 mg Q4H PRN PO; Start 04/02/25 at 15:00; Stop 05/02/25 at 14:59 Loperamide HCl 2 mg Q6H PRN PO; Start 04/02/25 at 15:00; Stop 05/02/25 at 14:59 Docusate Sodium 100 mg BID PRN PO Last administered on 04/05/25at 11:05; Start 04/02/25 at 15:00; Stop 05/02/25 at 14:59 Polyethylene Glycol 17 gm DAILY PRN PO; Start 04/02/25 at 15:00; Stop 05/02/25 at 14:59 Lidocaine HCl/Al Hydroxide/Mg Hydroxide/ Dicyclomine HCl 20ML OR AD MAALOX P... Q6H PRN PO; Start 04/02/25 at 15:00; Stop 05/02/25 at 14:59 Artificial Tears 1 DROP Q2H PRN OP; Start 04/02/25 at 15:00; Stop 05/02/25 at 14:59 Hydralazine HCl 10 mg ONCE ONCE IV Last administered on 04/02/25at 15:40; Start 04/02/25 at 16:00; Stop 04/02/25 at 16:01; Status DC Thiamine HCl 100 mg DAILY IM Last administered on 04/05/25at 10:54; Start 04/03/25 at 09:00; Stop 04/05/25 at 09:01; Status DC Folic Acid 1 mg DAILY PO Last administered on 04/04/25at 13:09; Start 04/03/25 at 09:00; Stop 04/05/25 at 09:01; Status DC Multivitamins Therapeutic 1 tab DAILY PO Last administered on 04/07/25at 10:03; Start 04/03/25 at 09:00; Stop 05/03/25 at 08:59 Pharmacy Profile Note 1 each PROTOCOL PRN MISC; Start 04/02/25 at 20:30; Stop 04/09/25 at 20:29 Potassium Chloride 100 ml @ 100 mls/hr AD PRN IV; Start 04/02/25 at 20:30; Stop 05/02/25 at 20:29 Potassium Chloride 20 meq AD PRN PO Last administered on 04/05/25at 06:48; Start 04/02/25 at 20:30; Stop 05/02/25 at 20:29 Potassium Chloride 20 meq AD PRN PO Last administered on 04/06/25at 17:38; Start 04/02/25 at 20:30; Stop 05/02/25 at 20:29 Magnesium Sulfate 50 ml @ 0 mls/hr PROTOCOL PRN IV Last administered on 04/05/25at 06:49; Start 04/02/25 at 20:30; Stop 05/02/25 at 20:29 Diltiazem HCl 25 mg ONCE PRN IVP Last administered on 04/03/25at 17:19; Start 04/03/25 at 14:30; Stop 04/03/25 at 17:19; Status DC Diltiazem HCl 125 mg/Sodium Chloride 125 ml @ 0 mls/hr AD PRN IV; Start 04/03/25 at 14:30; Stop 04/05/25 at 14:05; Status DC Metoprolol Tartrate 25 mg BID PO Last administered on 04/07/25at 10:03; Start 04/03/25 at 22:30; Stop 05/03/25 at 22:29 Diazepam 5 mg Q6H PO Last administered on 04/05/25at 06:28; Start 04/04/25 at 07:30; Stop 04/05/25 at 14:05; Status DC Heparin Sodium (Porcine) *calculation based on ACTUAL B... AD PRN IV; Start 04/04/25 at 09:30; Stop 04/04/25 at 08:52; Status DC Heparin Sodium/ Dextrose 250 ml @ 0 mls/hr Q6H IV; Start 04/04/25 at 09:30; Stop 04/04/25 at 08:52; Status DC Diltiazem HCl 120 mg Q24H PO; Start 04/05/25 at 14:00; Stop 04/05/25 at 15:09; Status DC Diltiazem HCl 120 mg Q24H PO Last administered on 04/07/25at 17:27; Start 04/05/25 at 16:00; Stop 05/05/25 at 15:59 Aspirin 325 mg DAILY PO Last administered on 04/07/25at 10:07; Start 04/05/25 at 17:30; Stop 05/05/25 at 17:29 [facility] Apr 07, 2025 18:27
--- NOTE | 2025-04-07 23:43 | PN ---
[facility] PROGRESS NOTE Date Patient Seen: Apr 07, 2025 Time of Visit: 23:43 Supervising Physician:Dr. Vamshi Madrid Primary Care Physician: Self, referral Outpatient Specialists: [ ] Inpatient Consults: Dr. Downing (Cardiology) PROBLEM LIST: Cerebrovascular disease status post CVA confirmed by MRI results. Severe cardiomyopathy echocardiogram 04/03/2025 LVEFless than 20% Atrial fibrillation with RVR Ground level fall, CT head pending, POA Acute metabolic encephalopathy, POA NSTEMI, POA Hypertensive urgency, POA Acute hypoxic respiratory failure, POA Suspected congestive heart failure, POA Suspect CVA verse TIA Failure to thrive, POA Thrombocytopenia, POA Alcohol use, per report patient drinks alcohol daily POA Abuse, tested positive drug screening, POA PLAN: Transferred to med/Surg floor CODE STATUS:DNI/DNR Diet heart healthy Aspirin 325 mg enteric coated daily Case management to assist with placement prison facility INTERVAL HISTORY: 04/03-patient was seen and assessed by myself, awake alert and in no acute distress. Accompanied by patient's bedside nurse, and was joined by patient's 2nd cousin, jeremy Porter who has been taking care of the patient.. Family member expressed and reports that the patient's home life is somewhat unorganized patient has been misusing alcohol and cocaine regularly and has had notable neuro deficits and inability to ambulate or right is bicycle. Upon further investigation found out the patient to be in a new onset atrial fibrillation with RVR. Diagnostic tests ordered: EKG, stat which confirmed atrial fibrillation with RVR. Request cardiac consult. Ordered diltiazem drip, patient then to be transferred to PCCU for management. A.m. labs ordered for tomorrow. Valium 5 mg p.o. q.6 hours scheduled to keep patient relaxed. We will continue with CIWA protocol. 04/04-patient is assessed and examined with Parminder patient's bedside nurse accompanying me, patient is awake and alert. Patient is no acute distress at this time. Patient has unclear thoughts. Patient has declined to take any oral medications or any mild conscious sedation so we can have the MRI. This is a change in the patient's behavior from yesterday. When the patient wanted to be treated for his atrial fib with RVR. Medications are available to be taken to help manage this AFib with RVR acute new onset, with metoprolol 25 mg p.o. b.i.d. in conjunction with a Cardizem drip currently which has been on hold because the patient's heart rate is in the 70s. Cardiology has been consulted, have 48 hours to start patient on some form of anticoagulation therapy, must be balanced with patient's history of recent abuse of alcohol and of cocaine. We will request assistance from case management. A.m. labs have been ordered. 04/05- patient was assessed in seen with contact Tiffany, patient's 2nd cousin, was in the room during my physical examination of the patient. Reviewed and discussed with both patient and family member, diagnostic results including MRI of the brain which indicated the patient has had a recent cerebrovascular accident, a stroke. The patient has had multiple falls prior to this admission to the hospital. Discussed with Tiffany the risks and benefits of anticoagulation therapy. The patient has been recently diagnosed with atrial fibrillation with RVR now atrial fib controlled. Prior to the admission to the hospital the patient has had multiple falls at home. MRI results indicate patient had a stroke in the past resulting in debility patient's inability to ride his bicycle. CHADS-VASc score and has bled were discussed with Tiffany and patient. The patient and bedding discussed this and the patient's code status has changed to DNR/DNI. The patient agrees to taking an aspirin 325 mg enteric-coated daily we will not be started on Eliquis 5 mg p.o. b.i.d.. Based on the patient's functional decline through the admission process, diagnostic tests results, echocardiogram LV EF less than 20%, we will be discussing with patient's cousin bed besides prison facility we will approach palliative care/hospice. Patient will be downgraded transferred out of the PCCU to floor med surge status. 04/06-assessed and seen resting in bed harbor bed is elevated. Reviewed and discussed lab results diagnostic tests results, vital signs treatment plan with patient and 2nd cousin, Tiffany. Plan patient to be transferred to prison facility code status is DNR/DNI. The patient's guarded condition very poor prognosis patient are thinking about going to hospice [facility] we will follow up with them tomorrow, Tuesday. Case management working on placement. A.m. labs ordered. 04/07_Assesed & patient by myself, friendly somewhat conversant, awake responds and very simple sentences with a soft voice. Utilizing family contact fatty patient's 2nd cousin to assist with an get a better understanding of the patient's home life and situation. Reviewed and discussed with family member, and patient laboratory results, vital signs, diagnostic tests done on admission they were the MRI and a echocardiogram, determined that the patient has had a stroke prior to admission to the hospital and that is the patient's EF is less than 20%. Patient knows and verbalizes understanding that he is very sick we will follow up when rounding tomorrow mid day to see if patient and has decided to go hospice if then I will have case management assist with placement probably at a prison facility with hospice administered. A.m. labs ordered for tomorrow. REVIEW OF SYSTEMS: Unable to obtain due to alteration in mental status PHYSICAL EXAM: GENERAL: Confused not in acute respiratory distress HEENT: EOMI, Sclera non icteric, moist mucosa NECK: Supple, no JVD, trachea midline LUNGS: Clear breath sounds bilaterally. No wheezes HEART: Irregular rhythm rate controlled, atrial fib. ABD: Abdomen soft, nontender. Bowel sounds present EXT: No clubbing cyanosis or edema NEURO: Confused, unable to answer questions appropriately Vital Signs (last 8hr) Date Time Temp Pulse Resp B/P (MAP) Pulse Ox O2 Delivery O2 Flow Rate FiO2 04/07/25 20:35 98.1 45 17 128/69 Room Air 04/07/25 20:20 99 Room Air* 0 21 LABS: Hematology Labs: Test 04/07/25 06:08 Range/Units White Blood Count 5.3 4.8-10.8 K/uL Red Blood Count 4.38 L 4.50-6.20 MIL/uL Hemoglobin 13.7 L 14.0-18.0 g/dL Hematocrit 39.9 L 42-54 % Mean Corpuscular Volume 91.1 79-99 fL Mean Corpuscular Hemoglobin 31.3 27.0-33.0 pg Mean Corpuscular Hemoglobin Concent 34.3 32.0-36.0 g/dL Red Cell Distribution Width 14.5 11.0-15.5 % Platelet Count 52 L 130-400 K/uL Mean Platelet Volume 11.1 H 7.5-10.5 fL Nucleated Red Blood Cells 0.0 0.0-0.19 % Chemistry Labs: Test 04/07/25 19:42 04/07/25 06:08 Range/Units Whole Blood Glucose 162 H 70-110 MG/DL Sodium Level 137 136-145 mmol/L Potassium Level 4.0 3.5-5.1 mmol/L Chloride Level 104 101-111 mmol/L Carbon Dioxide Level 24 21-32 mmol/L Blood Urea Nitrogen 24 H 7-18 mg/dL Creatinine 1.1 0.5-1.3 mg/dL Glomerular Filtration Rate Calc 69 >90 mL/min Random Glucose 108 H 70-105 mg/dL Total Calcium 8.5 8.5-10.1 mg/dL Total Bilirubin 1.0 0.2-1.0 mg/dL Aspartate Amino Transf (AST/SGOT) 36 10-37 U/L Alanine Aminotransferase (ALT/SGPT) 20 12-78 U/L Alkaline Phosphatase 53 50-136 U/L Total Protein 6.1 6.0-8.3 g/dL Albumin 2.0 L 3.5-5.0 g/dL DIAGNOSTICS / RADIOLOGY RESULTS: [ ] PLAN NEURO: Minimize central acting medications as possible. Maintain fall precautions, adequate lighting during the day PULMONARY: Supplemental 02 as needed. Maintain aspiration precautions at all times CARDIOVASCULAR: Follow hemodynamics. Vital signs per facility protocol GI & NUTRITION: Continue with nutritional support. Continue stool softeners and laxatives as needed. KIDNEYS & ELECTROLYTES: Strict monitoring of intake, output and overall fluid balance. Avoid nephrotoxic medications to the extent possible. Medications to be dosed according to renal function. Monitor electrolytes and replace as needed ENDOCRINE: Maintain blood glucose between 100-180 at all times. Hypoglycemia protocol in place INFECTIOUS DISEASE: Trend temperature, WBC and procalcitonin level Follow cultures, deescalate antibiotics as soon as possible. Panculture if new onset fever ONCOLOGY/HEMATOLOGY/COAGULATION: Monitor for s/s of bleeding Monitor hemoglobin, coagulation studies as needed SKIN: Pressure ulcer prevention per facility protocol Specialty mattress ORTHO/REHAB: Continue PT/OT Prophylaxis: Continue GI and DVT prophylaxis Code Status: Full Resuscitation Disposition: TBD 45 minutes critical care time was utilized because the patient has criteria involves to systems cardiovascular and pulmonary systems. Additionally, neurovascular suspect TIA versus CVA recently. My assessment findings, diagnostic tests results, laboratory results, patient's recent health history was reviewed and discussed with my supervising physician, Dr Farzana Smith and an interventional plan was developed. [facility] Apr 07, 2025 23:43
[2025-04-08] VITALS (8 sets, daily range): BP systolic 122–168; BP diastolic 68–100; PULSE 40–91; RESP 18–20; TEMP 97.4–98.3; O2SAT 96–97
[2025-04-08 07:44] LABS: NUCLEATED RED BLOOD CELLS 0.0 % (0.0-0.19); PLATELET COUNT (AUTO) 57.0 K/uL (130-400); RED BLOOD CELL COUNT(AUTO) 4.31 MIL/uL (4.50-6.20); RED CELL DISTRIBUTION WIDTH 14.4 % (11.0-15.5); WHITE BLOOD COUNT (AUTO) 4.6 K/uL (4.8-10.8)
[2025-04-08 08:09] LABS: ASPARTATE AMINOTRANSFERASE 41.0 U/L (10-37); CREATININE 1.0 mg/dL (0.5-1.3); GLOMERULAR FILTR. RATE CALC 77.0 mL/min (>90); GLUCOSE,RANDOM 103.0 mg/dL (70-105); SODIUM SERUM 134.0 mmol/L (136-145); TOTAL PROTEIN, SERUM 6.2 g/dL (6.0-8.3); UREA NITROGEN, BLOOD 22.0 mg/dL (7-18)
--- NOTE | 2025-04-08 19:58 | PN ---
CARDIOLOGY Reason for consult: Atrial fibrillation HPI/story at presentation: This is a pleasant 79-year-old male with past medical history as below presents with complaints of a fall. Currently, being treated for this,. To thrive at presentation. Was found to have atrial fibrillation therefore, cardiology was consulted for further evaluation management Past medical history: See below Allergies, Meds See chart Review of systems Review of Systems Constitutional: Negative for chills and fever. HENT: Negative for ear discharge and ear pain. Eyes: Negative for photophobia and discharge. Respiratory: Negative for cough, sputum production and stridor. Cardiovascular: Negative for chest pain and palpitations. Gastrointestinal: Negative for diarrhea and vomiting. Genitourinary: Negative for frequency. Musculoskeletal: Negative for myalgias. Skin: Negative for rash. Neurological: Negative for focal weakness and seizures. Endo/Heme/Allergies: Negative for polydipsia. Psychiatric/Behavioral: Negative for hallucinations. Vitals see chart PHYSICAL EXAMINATION GENERAL: The patient is alert and oriented*3 HEENT: Nonicteric sclerae, non traumatic HEART: Regular rate and rhythm with no murmurs LUNGS: Clear to auscultation bilaterally ABDOMEN: No acute issues, non tender GENITAL, RECTAL: deferred SKIN: No rash NEUROLOGIC: NFND EXTREMITIES: No edema ASSESSMENT ATRIAL FIBRILLATION WITH RVR On Cardizem, 03/2025 CARDIOMYOPATHY EF < 20% CVA MRI 04/13 FAILURE TO THRIVE, FALL At presentation ELEVATED TROPONIN Likely type II in the setting of underlying issues RESPIRATORY FAILURE On oxygen HYPERTENSION, ALCOHOL USE OTHER MEDICAL PROBLEMS Reviewed PLAN 04/03/2025 continue current medical therapy for now, eventual Cardizem, echo pending, will keep rates less than 120 for now. On metoprolol and Cardizem at this time. Start heparin seen and examined 04/03/2025 at around 8 PM. 04/04/2025 Overall, doing well, no acute cardiac complaints at this time. Rates are better controlled. Mildly confused. Brain MRI pending. MRI with severe depressed EF of less than 20%. Aortic valve velocities are likely underestimated in the setting of underlying cardiomyopathy.Will discuss ischemic eval. Seen and examined 04/04/2025 at around 8 PM. 04/05/2025 MRI was abnormal with evidence of a possible acute stroke, ejection fraction less than 20%. Will watch for neurological recovery, get neurology clearance for ischemic evaluation and DAPT. Seen and examined 04/05/2025 at around 9 PM. 04/06/2025 No improvement in current mental status. Will continue with conservative management Patient with frequent falls with high risk for oral anticoagulation 04/07/2025 Mental status declining No interventions from cardiology standpoint patient is too high risk to start DOAC at this time. 04/08/2025 Family considering possible hospice possible hospice being considered, not on anticoagulation, conservative management at this time. Seen and examined 04/08/2025 at around 8 PM. ATTESTATION I was involved substantially in the care of this patient Number and complexity of problems addressed: 2 or more stable illnesses Amount and or complexity of data Review of prior external note(s) from each unique source: 2+ Ordering of each unique test : 0 Review of the result(s) of each unique test: 2+ Assessment requiring an independent historian(s): No Independent interpretation of test performed by another MD/QHCP/appropriate source (not separately reported) : No Discussion of management or test interpretation with external MD/QHCP/appropriate source (not separately reported) : No Risk status (cardiac, billing related):Low Vitals/Labs Vital Signs Date Time Temp Pulse Resp B/P (MAP) Pulse Ox O2 Delivery O2 Flow Rate FiO2 04/08/25 15:41 97.7 78 18 131/84 95 Room Air 04/08/25 07:52 0 21 Laboratory Tests 04/08/25 07:34 Medications Current Medications Diphenhydramine HCl 25 mg Q6H PRN IV Last administered on 04/05/25at 11:00; Start 04/02/25 at 15:00; Stop 05/02/25 at 14:59 Acetaminophen 650 mg Q6H PRN PO; Start 04/02/25 at 15:00; Stop 05/02/25 at 14:59 Acetaminophen 650 mg Q4H PRN PO; Start 04/02/25 at 15:00; Stop 05/02/25 at 14:59 Ondansetron HCl 4 mg Q6H PRN IV; Start 04/02/25 at 15:00; Stop 05/02/25 at 14:59 Al Hydroxide/Mg Hydroxide 30 ml Q6H PRN PO; Start 04/02/25 at 15:00; Stop 05/02/25 at 14:59 Lactulose 20 gm BID PRN PO; Start 04/02/25 at 15:00; Stop 05/02/25 at 14:59 Nitroglycerin 0.4 mg PROTOCOL PRN SL; Start 04/02/25 at 15:00; Stop 05/02/25 at 14:59 Guaifenesin 200 mg Q4H PRN PO; Start 04/02/25 at 15:00; Stop 05/02/25 at 14:59 Loperamide HCl 2 mg Q6H PRN PO; Start 04/02/25 at 15:00; Stop 05/02/25 at 14:59 Docusate Sodium 100 mg BID PRN PO Last administered on 04/05/25at 11:05; Start 04/02/25 at 15:00; Stop 05/02/25 at 14:59 Polyethylene Glycol 17 gm DAILY PRN PO; Start 04/02/25 at 15:00; Stop 05/02/25 at 14:59 Lidocaine HCl/Al Hydroxide/Mg Hydroxide/ Dicyclomine HCl 20ML OR AD MAALOX P... Q6H PRN PO; Start 04/02/25 at 15:00; Stop 05/02/25 at 14:59 Artificial Tears 1 DROP Q2H PRN OP; Start 04/02/25 at 15:00; Stop 05/02/25 at 14:59 Hydralazine HCl 10 mg ONCE ONCE IV Last administered on 04/02/25at 15:40; Start 04/02/25 at 16:00; Stop 04/02/25 at 16:01; Status DC Thiamine HCl 100 mg DAILY IM Last administered on 04/05/25at 10:54; Start 04/03/25 at 09:00; Stop 04/05/25 at 09:01; Status DC Folic Acid 1 mg DAILY PO Last administered on 04/04/25at 13:09; Start 04/03/25 at 09:00; Stop 04/05/25 at 09:01; Status DC Multivitamins Therapeutic 1 tab DAILY PO Last administered on 04/08/25at 08:57; Start 04/03/25 at 09:00; Stop 05/03/25 at 08:59 Pharmacy Profile Note 1 each PROTOCOL PRN MISC; Start 04/02/25 at 20:30; Stop 04/09/25 at 20:29 Potassium Chloride 100 ml @ 100 mls/hr AD PRN IV; Start 04/02/25 at 20:30; Stop 05/02/25 at 20:29 Potassium Chloride 20 meq AD PRN PO Last administered on 04/05/25at 06:48; Start 04/02/25 at 20:30; Stop 05/02/25 at 20:29 Potassium Chloride 20 meq AD PRN PO Last administered on 04/06/25at 17:38; Start 04/02/25 at 20:30; Stop 05/02/25 at 20:29 Magnesium Sulfate 50 ml @ 0 mls/hr PROTOCOL PRN IV Last administered on 04/05/25at 06:49; Start 04/02/25 at 20:30; Stop 05/02/25 at 20:29 Diltiazem HCl 25 mg ONCE PRN IVP Last administered on 04/03/25at 17:19; Start 04/03/25 at 14:30; Stop 04/03/25 at 17:19; Status DC Diltiazem HCl 125 mg/Sodium Chloride 125 ml @ 0 mls/hr AD PRN IV; Start 04/03/25 at 14:30; Stop 04/05/25 at 14:05; Status DC Metoprolol Tartrate 25 mg BID PO Last administered on 04/08/25at 08:57; Start 04/03/25 at 22:30; Stop 05/03/25 at 22:29 Diazepam 5 mg Q6H PO Last administered on 04/05/25at 06:28; Start 04/04/25 at 07:30; Stop 04/05/25 at 14:05; Status DC Heparin Sodium (Porcine) *calculation based on ACTUAL B... AD PRN IV; Start 04/04/25 at 09:30; Stop 04/04/25 at 08:52; Status DC Heparin Sodium/ Dextrose 250 ml @ 0 mls/hr Q6H IV; Start 04/04/25 at 09:30; Stop 04/04/25 at 08:52; Status DC Diltiazem HCl 120 mg Q24H PO; Start 04/05/25 at 14:00; Stop 04/05/25 at 15:09; Status DC Diltiazem HCl 120 mg Q24H PO Last administered on 04/08/25at 16:52; Start 04/05/25 at 16:00; Stop 05/05/25 at 15:59 Aspirin 325 mg DAILY PO Last administered on 04/08/25at 08:57; Start 04/05/25 at 17:30; Stop 05/05/25 at 17:29 LOPEZ RODRIGUEZ MD Apr 08, 2025 19:58
--- NOTE | 2025-04-08 23:58 | PN ---
[facility] PROGRESS NOTE Date Patient Seen: Apr 08, 2025 Time of Visit: 23:57 Supervising Physician: Dr. Fabian Jain Primary Care Physician: Self, referral Outpatient Specialists: [ ] Inpatient Consults: Dr. Downing (Cardiology) PROBLEM LIST: Cerebrovascular disease status post CVA confirmed by MRI results. Severe cardiomyopathy echocardiogram 04/03/2025 LVEFless than 20% Atrial fibrillation with RVR Ground level fall, CT head pending, POA Acute metabolic encephalopathy, POA NSTEMI, POA Hypertensive urgency, POA Acute hypoxic respiratory failure, POA Suspected congestive heart failure, POA Suspect CVA verse TIA Failure to thrive, POA Thrombocytopenia, POA Alcohol use, per report patient drinks alcohol daily POA Abuse, tested positive drug screening, POA PLAN: Transferred to med/Surg floor CODE STATUS:DNI/DNR Diet heart healthy Aspirin 325 mg enteric coated daily Case management to assist with placement [facility] facility INTERVAL HISTORY: 04/03-patient was seen and assessed by myself, awake alert and in no acute distress. Accompanied by patient's bedside nurse, and was joined by patient's 2nd cousin, jeremy Porter who has been taking care of the patient.. Family member expressed and reports that the patient's home life is somewhat unorganized patient has been misusing alcohol and cocaine regularly and has had notable neuro deficits and inability to ambulate or right is bicycle. Upon further investigation found out the patient to be in a new onset atrial fibrillation with RVR. Diagnostic tests ordered: EKG, stat which confirmed atrial fibrillation with RVR. Request cardiac consult. Ordered diltiazem drip, patient then to be transferred to PCCU for management. A.m. labs ordered for tomorrow. Valium 5 mg p.o. q.6 hours scheduled to keep patient relaxed. We will continue with CIWA protocol. 04/04-patient is assessed and examined with Parminder patient's bedside nurse accompanying me, patient is awake and alert. Patient is no acute distress at this time. Patient has unclear thoughts. Patient has declined to take any oral medications or any mild conscious sedation so we can have the MRI. This is a change in the patient's behavior from yesterday. When the patient wanted to be treated for his atrial fib with RVR. Medications are available to be taken to help manage this AFib with RVR acute new onset, with metoprolol 25 mg p.o. b.i.d. in conjunction with a Cardizem drip currently which has been on hold because the patient's heart rate is in the 70s. Cardiology has been consulted, have 48 hours to start patient on some form of anticoagulation therapy, must be balanced with patient's history of recent abuse of alcohol and of cocaine. We will request assistance from case management. A.m. labs have been ordered. 04/05- patient was assessed in seen with contact Tiffany, patient's 2nd cousin, was in the room during my physical examination of the patient. Reviewed and discussed with both patient and family member, diagnostic results including MRI of the brain which indicated the patient has had a recent cerebrovascular accident, a stroke. The patient has had multiple falls prior to this admission to the hospital. Discussed with Tiffany the risks and benefits of anticoagulation therapy. The patient has been recently diagnosed with atrial fibrillation with RVR now atrial fib controlled. Prior to the admission to the hospital the p frankie has had multiple falls at home. MRI results indicate patient had a stroke in the past resulting in debility patient's inability to ride his bicycle. CHADS-VASc score and has bled were discussed with Tiffany and patient. The patient and bedding discussed this and the patient's code status has changed to DNR/DNI. The patient agrees to taking an aspirin 325 mg enteric-coated daily we will not be started on Eliquis 5 mg p.o. b.i.d.. Based on the patient's functional decline through the admission process, diagnostic tests results, echocardiogram LV EF less than 20%, we will be discussing with patient's cousin bed besides [facility] facility we will approach palliative care/hospice. Patient will be downgraded transferred out of the PCCU to floor med surge status. 04/06-assessed and seen resting in bed harbor bed is elevated. Reviewed and discussed lab results diagnostic tests results, vital signs treatment plan with patient and 2nd cousin, Tiffany. Plan patient to be transferred to [facility] facility code status is DNR/DNI. The patient's guarded condition very poor prognosis patient are thinking about going to hospice [facility] we will follow up with them tomorrow, Tuesday. Case management working on placement. A.m. labs ordered. 04/07_Assesed & patient by myself, friendly somewhat conversant, awake responds and very simple sentences with a soft voice. Utilizing family contact fatty patient's 2nd cousin to assist with an get a better understanding of the patient's home life and situation. Reviewed and discussed with family member, and patient laboratory results, vital signs, diagnostic tests done on admission they were the MRI and a echocardiogram, determined that the patient has had a stroke prior to admission to the hospital and that is the patient's EF is less than 20%. Patient knows and verbalizes understanding that he is very sick we will follow up when rounding tomorrow mid day to see if patient and has decided to go hospice if then I will have case management assist with placement probably at a [facility] facility with hospice administered. A.m. labs ordered for tomorrow. 04/08 assess and saw the patient resting in bed head of bed elevated, friendly patient is critically ill-appearing can answer simple questions nursing staff report no adverse events occurring overnight. Accompanied by patient's bedside nurse. Discussed with both patient and family member, 2nd cousin bed. Patient and family member are discussing in thinking about the options of hospice because both are aware of the seriousness of the patient's condition and prognosis. Case management is looking for placement. Reviewed with both that the patient has had recently 81 CVA patient is taking aspirin has been discussed that other anticoagulation therapy has been rejected by the patient and family because of the increased risk of bleeding status post fall because the patient has had multiple falls prior to this admission. Patient on admission tested positive for cocaine and alcohol. Patient's echo is less than 20%. A.m. labs have been ordered. Before leaving and we will follow up with day determine if p atient will be hospice. REVIEW OF SYSTEMS: Unable to obtain due to alteration in mental status PHYSICAL EXAM: GENERAL: Confused not in acute respiratory distress HEENT: EOMI, Sclera non icteric, moist mucosa NECK: Supple, no JVD, trachea midline LUNGS: Clear breath sounds bilaterally. No wheezes HEART: Irregular rhythm rate controlled, atrial fib. ABD: Abdomen soft, nontender. Bowel sounds present EXT: No clubbing cyanosis or edema NEURO: Confused, unable to answer questions appropriately LABS: Hematology Labs: Test 04/08/25 07:34 Range/Units White Blood Count 4.6 L 4.8-10.8 K/uL Red Blood Count 4.31 L 4.50-6.20 MIL/uL Hemoglobin 13.5 L 14.0-18.0 g/dL Hematocrit 40.8 L 42-54 % Mean Corpuscular Volume 94.7 79-99 fL Mean Corpuscular Hemoglobin 31.3 27.0-33.0 pg Mean Corpuscular Hemoglobin Concent 33.1 32.0-36.0 g/dL Red Cell Distribution Width 14.4 11.0-15.5 % Platelet Count 57 L 130-400 K/uL Mean Platelet Volume 10.8 H 7.5-10.5 fL Nucleated Red Blood Cells 0.0 0.0-0.19 % Chemistry Labs: Test 04/08/25 20:07 04/08/25 07:34 Range/Units Whole Blood Glucose 112 H 70-110 MG/DL Sodium Level 134 L 136-145 mmol/L Potassium Level 4.0 3.5-5.1 mmol/L Chloride Level 104 101-111 mmol/L Carbon Dioxide Level 25 21-32 mmol/L Blood Urea Nitrogen 22 H 7-18 mg/dL Creatinine 1.0 0.5-1.3 mg/dL Glomerular Filtration Rate Calc 77 >90 mL/min Random Glucose 103 70-105 mg/dL Total Calcium 8.2 L 8.5-10.1 mg/dL Magnesium Level 1.80 1.80-2.40 mg/dL Total Bilirubin 0.7 0.2-1.0 mg/dL Aspartate Amino Transf (AST/SGOT) 41 H 10-37 U/L Alanine Aminotransferase (ALT/SGPT) 22 12-78 U/L Alkaline Phosphatase 63 50-136 U/L Total Protein 6.2 6.0-8.3 g/dL Albumin 2.1 L 3.5-5.0 g/dL DIAGNOSTICS / RADIOLOGY RESULTS: [ ] PLAN NEURO: Minimize central acting medications as possible. Maintain fall precautions, adequate lighting during the day PULMONARY: Supplemental 02 as needed. Maintain aspiration precautions at all times CARDIOVASCULAR: Follow hemodynamics. Vital signs per facility protocol GI & NUTRITION: Continue with nutritional support. Continue stool softeners and laxatives as needed. KIDNEYS & ELECTROLYTES: Strict monitoring of intake, output and overall fluid balance. Avoid nephrotoxic medications to the extent possible. Medications to be dosed according to renal function. Monitor electrolytes and replace as needed ENDOCRINE: Maintain blood glucose between 100-180 at all times. Hypoglycemia protocol in place INFECTIOUS DISEASE: Trend temperature, WBC and procalcitonin level Follow cultures, deescalate antibiotics as soon as possible. Panculture if new onset fever ONCOLOGY/HEMATOLOGY/COAGULATION: Monitor for s/s of bleeding Monitor hemoglobin, coagulation studies as needed SKIN: Pressure ulcer prevention per facility protocol Specialty mattress ORTHO/REHAB: Continue PT/OT Prophylaxis: Continue GI and DVT prophylaxis Code Status: Full Resuscitation Disposition: TBD 45 minutes critical care time was utilized because the patient has criteria involves to systems cardiovascular and pulmonary systems. Additionally, neurovascular suspect TIA versus CVA recently. My assessment findings, diagnostic tests results, laboratory results, patient's recent health history was reviewed and discussed with my supervising physician, Dr Farzana Smith and an interventional plan was developed. [facility] Apr 08, 2025 23:58
[2025-04-09] VITALS (9 sets, daily range): BP systolic 122–154; BP diastolic 81–98; PULSE 50–99; RESP 16–22; TEMP 97.3–98.2; O2SAT 97–100
--- NOTE | 2025-04-09 13:54 | PN ---
[facility] PROGRESS NOTE Date Patient Seen: Apr 09, 2025 Time of Visit: 13:53 Supervising Physician: Dr. Jain Primary Care Physician: Self, referral Outpatient Specialists: [ ] Inpatient Consults: Dr. Downing (Cardiology) PROBLEM LIST: Cerebrovascular disease status post CVA confirmed by MRI results. Severe cardiomyopathy echocardiogram 04/03/2025 LVEFless than 20% Atrial fibrillation with RVR Ground level fall, CT head pending, POA Acute metabolic encephalopathy, POA NSTEMI, POA Hypertensive urgency, POA Acute hypoxic respiratory failure, POA Suspected congestive heart failure, POA Suspect CVA verse TIA Failure to thrive, POA Thrombocytopenia, POA Alcohol use, per report patient drinks alcohol daily POA Abuse, tested positive drug screening, POA PLAN: Transferred to med/Surg floor CODE STATUS:DNI/DNR Diet heart healthy Aspirin 325 mg enteric coated daily Case management to assist with placement alf facility INTERVAL HISTORY: Patient was evaluated at bedside today with no family present, patient is arousable, lethargic and obtunded but answers questions appropriately. Patient does not appear to be in any acute distress and denies any new onset symptoms. Peer to peer held today regarding patient's placement at [facility], advised that he will have require physical therapy notes with him out of bed. Case management notified, pending attempt to get the patient out of bed for therapy today and decision will be made on the patient's authorization for SNF placement tomorrow. Patient's most recent CBC shows a white count of 4.6 and hemoglobin 13.5. We will continue to monitor closely. REVIEW OF SYSTEMS: Unable to obtain due to alteration in mental status PHYSICAL EXAM: GENERAL: Confused not in acute respiratory distress HEENT: EOMI, Sclera non icteric, moist mucosa NECK: Supple, no JVD, trachea midline LUNGS: Clear breath sounds bilaterally. No wheezes HEART: Irregular rhythm rate controlled, atrial fib. ABD: Abdomen soft, nontender. Bowel sounds present EXT: No clubbing cyanosis or edema NEURO: Confused, unable to answer questions appropriately Vital Signs (last 8hr) Date Time Temp Pulse Resp B/P (MAP) Pulse Ox O2 Delivery O2 Flow Rate FiO2 04/09/25 11:49 97.3 50 16 126/96 97 Room Air 04/09/25 08:00 98.1 96 16 149/92 99 Room Air 04/09/25 06:46 97.5 81 18 154/88 96 Room Air LABS: Hematology Labs: Test 04/08/25 07:34 Range/Units White Blood Count 4.6 L 4.8-10.8 K/uL Red Blood Count 4.31 L 4.50-6.20 MIL/uL Hemoglobin 13.5 L 14.0-18.0 g/dL Hematocrit 40.8 L 42-54 % Mean Corpuscular Volume 94.7 79-99 fL Mean Corpuscular Hemoglobin 31.3 27.0-33.0 pg Mean Corpuscular Hemoglobin Concent 33.1 32.0-36.0 g/dL Red Cell Distribution Width 14.4 11.0-15.5 % Platelet Count 57 L 130-400 K/uL Mean Platelet Volume 10.8 H 7.5-10.5 fL Nucleated Red Blood Cells 0.0 0.0-0.19 % Chemistry Labs: Test 04/09/25 05:25 04/08/25 07:34 Range/Units Whole Blood Glucose 102 70-110 MG/DL Sodium Level 134 L 136-145 mmol/L Potassium Level 4.0 3.5-5.1 mmol/L Chloride Level 104 101-111 mmol/L Carbon Dioxide Level 25 21-32 mmol/L Blood Urea Nitrogen 22 H 7-18 mg/dL Creatinine 1.0 0.5-1.3 mg/dL Glomerular Filtration Rate Calc 77 >90 mL/min Random Glucose 103 70-105 mg/dL Total Calcium 8.2 L 8.5-10.1 mg/dL Magnesium Level 1.80 1.80-2.40 mg/dL Total Bilirubin 0.7 0.2-1.0 mg/dL Aspartate Amino Transf (AST/SGOT) 41 H 10-37 U/L Alanine Aminotransferase (ALT/SGPT) 22 12-78 U/L Alkaline Phosphatase 63 50-136 U/L Total Protein 6.2 6.0-8.3 g/dL Albumin 2.1 L 3.5-5.0 g/dL DIAGNOSTICS / RADIOLOGY RESULTS: [ ] PLAN NEURO: Minimize central acting medications as possible. Maintain fall precautions, adequate lighting during the day PULMONARY: Supplemental 02 as needed. Maintain aspiration precautions at all times CARDIOVASCULAR: Follow hemodynamics. Vital signs per facility protocol GI & NUTRITION: Continue with nutritional support. Continue stool softeners and laxatives as needed. KIDNEYS & ELECTROLYTES: Strict monitoring of intake, output and overall fluid balance. Avoid nephrotoxic medications to the extent possible. Medications to be dosed according to renal function. Monitor electrolytes and replace as needed ENDOCRINE: Maintain blood glucose between 100-180 at all times. Hypoglycemia protocol in place INFECTIOUS DISEASE: Trend temperature, WBC and procalcitonin level Follow cultures, deescalate antibiotics as soon as possible. Panculture if new onset fever ONCOLOGY/HEMATOLOGY/COAGULATION: Monitor for s/s of bleeding Monitor hemoglobin, coagulation studies as needed SKIN: Pressure ulcer prevention per facility protocol Specialty mattress ORTHO/REHAB: Continue PT/OT Prophylaxis: Continue GI and DVT prophylaxis Code Status: Full Resuscitation Disposition: TBD 45 minutes critical care time was utilized because the patient has criteria involves to systems cardiovascular and pulmonary systems. Additionally, neurovascular suspect TIA versus CVA recently. My assessment findings, diagnostic tests results, laboratory results, patient's recent health history was reviewed and discussed with my supervising physician, Dr Farzana Smith and an interventional plan was developed. VANE READ PAC Apr 09, 2025 13:54
--- NOTE | 2025-04-09 18:22 | CONS ---
CONSULTATION NOTE Date of Service: Apr 09, 2025 Reason for Consultation: [ wound of coccyx ] Requesting Physician: [ Dr Smith ] HISTORY OF PRESENT ILLNESS: Patient is evaluated at bedside in room 426 for initial wound care consult. 79-year-old male with past medical history of hypertension, chronic alcoholism who presented to ED via EMS with complaint of ground level fall, generalized body weakness and found to have possible congestive heart failure, and NSTEMI. Per report EMS was activated by family member after patient was found on the floor for unknown time. There is no reported head trauma or loss of consciousness. REVIEW OF SYSTEMS CONSTITUTIONAL: Denies fever, chills, or fatigue. HEAD/FACE: No signs of trauma. EENT: Denies eye pain, blurred vision, double vision, or light sensitivity. RESPIRATORY: Denies shortness of breath, cough, wheezing CARDIOVASCULAR: Denies chest pain, palpitation, syncope GASTROINTESTINAL/ABDOMINAL: Denies abdominal pain, constipation, diarrhea, nausea or vomiting GENITOURINARY: Denies dysuria or hematuria. MUSCULOSKELETAL: Denies joint pain, tenderness, or trauma. INTEGUMENTARY: Denies rash or itchiness NEUROLOGICAL/PSYCH: Denies anxiety, depression, heat or cold intolerance. PAST MEDICAL HX: see above PAST SURGICAL HX: noncontributory SOCIAL HISTORY: See HPI Coded Allergies: No Known Drug Allergies (Unverified Allergy, Unknown, 04/02/25) PHYSICAL EXAM EYES: Anicteric. Pupils equal and reactive. HENT: No oral thrush seen, moist Oral mucosa NECK: Supple, no JVD or thyromegaly. LUNGS: Good air entry. No rales, no rhonchi. CARDIOVASCULAR: S1, S2 regular. No murmur heard. ABDOMEN: Soft, non tender, bowel sounds present, no organomegaly CENTRAL NERVOUS SYSTEM: Awake, alert, oriented x 1. No focal deficits. SKIN: Stage 2 ulcer noted to coccyx with mild periwound erythema. No drainage noted. LYMPHATICS: No peripheral lymphadenopathy MUSCULOSKELETAL: No joint swelling, erythema or tenderness. EXTREMITIES: No cyanosis or clubbing BACK: No deformity GENITOURINARY: No dysuria or hematuria Vital Sign (Last 24 Hours) 04/09/25 04/09/25 07:58 16:00 Temp 97.9 Pulse 58 Resp 16 B/P (MAP) 134/98 Pulse Ox 99 O2 Delivery Room Air O2 Flow Rate 0 FiO2 21 Intake & Output (last 24hrs) 04/08/25 04/08/25 04/09/25 15:00 23:00 07:00 Intake Total 400 ml 360 ml Balance 400 ml 360 ml LABS: Laboratory: Test 04/09/25 05:25 04/08/25 07:34 Range/Units Whole Blood Glucose 102 70-110 MG/DL White Blood Count 4.6 L 4.8-10.8 K/uL Red Blood Count 4.31 L 4.50-6.20 MIL/uL Hemoglobin 13.5 L 14.0-18.0 g/dL Hematocrit 40.8 L 42-54 % Mean Corpuscular Volume 94.7 79-99 fL Mean Corpuscular Hemoglobin 31.3 27.0-33.0 pg Mean Corpuscular Hemoglobin Concent 33.1 32.0-36.0 g/dL Red Cell Distribution Width 14.4 11.0-15.5 % Platelet Count 57 L 130-400 K/uL Mean Platelet Volume 10.8 H 7.5-10.5 fL Nucleated Red Blood Cells 0.0 0.0-0.19 % Sodium Level 134 L 136-145 mmol/L Potassium Level 4.0 3.5-5.1 mmol/L Chloride Level 104 101-111 mmol/L Carbon Dioxide Level 25 21-32 mmol/L Blood Urea Nitrogen 22 H 7-18 mg/dL Creatinine 1.0 0.5-1.3 mg/dL Glomerular Filtration Rate Calc 77 >90 mL/min Random Glucose 103 70-105 mg/dL Total Calcium 8.2 L 8.5-10.1 mg/dL Magnesium Level 1.80 1.80-2.40 mg/dL Total Bilirubin 0.7 0.2-1.0 mg/dL Aspartate Amino Transf (AST/SGOT) 41 H 10-37 U/L Alanine Aminotransferase (ALT/SGPT) 22 12-78 U/L Alkaline Phosphatase 63 50-136 U/L Total Protein 6.2 6.0-8.3 g/dL Albumin 2.1 L 3.5-5.0 g/dL DIAGNOSTICS / RADIOLOGY: [ ] PROBLEM LIST : Medical Problems: Stage 2 ulcer to coccyx PLAN: Wound care to coccyx- Apply Venelex BID and PRN Keep wounds clean and dry Apply waffle mattress Offloading repositioning every 2 hours Comorbidities per primary care team Further management per hospital course Thank you for the consult and allowing us to participate in the care of this patient. ATTESTATION BY PHYSICIAN I have seen and examined the patient. I reviewed the documentation, medical decision making, and treatment plan as noted by the mid-level provider above. I agree with the findings and plan of care. DIANA CASTELAN MD, [facility] Apr 09, 2025 18:22
[2025-04-09] MEDS: BALSAM PERU/CASTOR OIL 60 GM TUBE TP SCH (21:20)
--- NOTE | 2025-04-09 22:05 | PN ---
CARDIOLOGY Reason for consult: Atrial fibrillation HPI/story at presentation: This is a pleasant 79-year-old male with past medical history as below presents with complaints of a fall. Currently, being treated for this,. To thrive at presentation. Was found to have atrial fibrillation therefore, cardiology was consulted for further evaluation management Past medical history: See below Allergies, Meds See chart Review of systems Review of Systems Constitutional: Negative for chills and fever. HENT: Negative for ear discharge and ear pain. Eyes: Negative for photophobia and discharge. Respiratory: Negative for cough, sputum production and stridor. Cardiovascular: Negative for chest pain and palpitations. Gastrointestinal: Negative for diarrhea and vomiting. Genitourinary: Negative for frequency. Musculoskeletal: Negative for myalgias. Skin: Negative for rash. Neurological: Negative for focal weakness and seizures. Endo/Heme/Allergies: Negative for polydipsia. Psychiatric/Behavioral: Negative for hallucinations. Vitals see chart PHYSICAL EXAMINATION GENERAL: The patient is alert and oriented*3 HEENT: Nonicteric sclerae, non traumatic HEART: Regular rate and rhythm with no murmurs LUNGS: Clear to auscultation bilaterally ABDOMEN: No acute issues, non tender GENITAL, RECTAL: deferred SKIN: No rash NEUROLOGIC: NFND EXTREMITIES: No edema ASSESSMENT ATRIAL FIBRILLATION WITH RVR On Cardizem, 03/2025 CARDIOMYOPATHY EF < 20% CVA MRI 04/13 FAILURE TO THRIVE, FALL At presentation ELEVATED TROPONIN Likely type II in the setting of underlying issues RESPIRATORY FAILURE On oxygen HYPERTENSION, ALCOHOL USE OTHER MEDICAL PROBLEMS Reviewed PLAN 04/03/2025 continue current medical therapy for now, eventual Cardizem, echo pending, will keep rates less than 120 for now. On metoprolol and Cardizem at this time. Start heparin seen and examined 04/03/2025 at around 8 PM. 04/04/2025 Overall, doing well, no acute cardiac complaints at this time. Rates are better controlled. Mildly confused. Brain MRI pending. MRI with severe depressed EF of less than 20%. Aortic valve velocities are likely underestimated in the setting of underlying cardiomyopathy.Will discuss ischemic eval. Seen and examined 04/04/2025 at around 8 PM. 04/05/2025 MRI was abnormal with evidence of a possible acute stroke, ejection fraction less than 20%. Will watch for neurological recovery, get neurology clearance for ischemic evaluation and DAPT. Seen and examined 04/05/2025 at around 9 PM. 04/06/2025 No improvement in current mental status. Will continue with conservative management Patient with frequent falls with high risk for oral anticoagulation 04/07/2025 Mental status declining No interventions from cardiology standpoint patient is too high risk to start DOAC at this time. 04/08/2025 Family considering possible hospice possible hospice being considered, not on anticoagulation, conservative management at this time. Seen and examined 04/08/2025 at around 8 PM. 04/09/2025 Plans for hospice to being considered, for now, no aggressive evaluation or intervention planned. Seen and examined 04/09/2025 at around 8 PM. ATTESTATION I was involved substantially in the care of this patient Number and complexity of problems addressed: 2 or more stable illnesses Amount and or complexity of data Review of prior external note(s) from each unique source: 2+ Ordering of each unique test : 0 Review of the result(s) of each unique test: 2+ Assessment requiring an independent historian(s): No Independent interpretation of test performed by another MD/QHCP/appropriate source (not separately reported) : No Discussion of management or test interpretation with external MD/QHCP/appropriate source (not separately reported) : No Risk status (cardiac, billing related):Low Vitals/Labs Vital Signs Date Time Temp Pulse Resp B/P (MAP) Pulse Ox O2 Delivery O2 Flow Rate FiO2 04/09/25 20:00 97.9 99 20 154/93 100 Room Air 04/09/25 07:58 0 21 Medications Current Medications Diphenhydramine HCl 25 mg Q6H PRN IV Last administered on 04/05/25at 11:00; Start 04/02/25 at 15:00; Stop 05/02/25 at 14:59 Acetaminophen 650 mg Q6H PRN PO; Start 04/02/25 at 15:00; Stop 05/02/25 at 14:59 Acetaminophen 650 mg Q4H PRN PO; Start 04/02/25 at 15:00; Stop 05/02/25 at 14:59 Ondansetron HCl 4 mg Q6H PRN IV; Start 04/02/25 at 15:00; Stop 05/02/25 at 14:59 Al Hydroxide/Mg Hydroxide 30 ml Q6H PRN PO; Start 04/02/25 at 15:00; Stop 05/02/25 at 14:59 Lactulose 20 gm BID PRN PO; Start 04/02/25 at 15:00; Stop 05/02/25 at 14:59 Nitroglycerin 0.4 mg PROTOCOL PRN SL; Start 04/02/25 at 15:00; Stop 05/02/25 at 14:59 Guaifenesin 200 mg Q4H PRN PO; Start 04/02/25 at 15:00; Stop 05/02/25 at 14:59 Loperamide HCl 2 mg Q6H PRN PO; Start 04/02/25 at 15:00; Stop 05/02/25 at 14:59 Docusate Sodium 100 mg BID PRN PO Last administered on 04/05/25at 11:05; Start 04/02/25 at 15:00; Stop 05/02/25 at 14:59 Polyethylene Glycol 17 gm DAILY PRN PO; Start 04/02/25 at 15:00; Stop 05/02/25 at 14:59 Lidocaine HCl/Al Hydroxide/Mg Hydroxide/ Dicyclomine HCl 20ML OR AD MAALOX P... Q6H PRN PO; Start 04/02/25 at 15:00; Stop 05/02/25 at 14:59 Artificial Tears 1 DROP Q2H PRN OP; Start 04/02/25 at 15:00; Stop 05/02/25 at 14:59 Hydralazine HCl 10 mg ONCE ONCE IV Last administered on 04/02/25at 15:40; Start 04/02/25 at 16:00; Stop 04/02/25 at 16:01; Status DC Thiamine HCl 100 mg DAILY IM Last administered on 04/05/25at 10:54; Start 04/03/25 at 09:00; Stop 04/05/25 at 09:01; Status DC Folic Acid 1 mg DAILY PO Last administered on 04/04/25at 13:09; Start 04/03/25 at 09:00; Stop 04/05/25 at 09:01; Status DC Multivitamins Therapeutic 1 tab DAILY PO Last administered on 04/09/25at 09:00; Start 04/03/25 at 09:00; Stop 05/03/25 at 08:59 Pharmacy Profile Note 1 each PROTOCOL PRN MISC; Start 04/02/25 at 20:30; Stop 04/09/25 at 20:29; Status DC Potassium Chloride 100 ml @ 100 mls/hr AD PRN IV; Start 04/02/25 at 20:30; Stop 05/02/25 at 20:29 Potassium Chloride 20 meq AD PRN PO Last administered on 04/05/25at 06:48; Start 04/02/25 at 20:30; Stop 05/02/25 at 20:29 Potassium Chloride 20 meq AD PRN PO Last administered on 04/06/25at 17:38; Start 04/02/25 at 20:30; Stop 05/02/25 at 20:29 Magnesium Sulfate 50 ml @ 0 mls/hr PROTOCOL PRN IV Last administered on 04/05/25at 06:49; Start 04/02/25 at 20:30; Stop 05/02/25 at 20:29 Diltiazem HCl 25 mg ONCE PRN IVP Last administered on 04/03/25at 17:19; Start 04/03/25 at 14:30; Stop 04/03/25 at 17:19; Status DC Diltiazem HCl 125 mg/Sodium Chloride 125 ml @ 0 mls/hr AD PRN IV; Start 04/03/25 at 14:30; Stop 04/05/25 at 14:05; Status DC Metoprolol Tartrate 25 mg BID PO Last administered on 04/09/25at 21:20; Start 04/03/25 at 22:30; Stop 05/03/25 at 22:29 Diazepam 5 mg Q6H PO Last administered on 04/05/25at 06:28; Start 04/04/25 at 07:30; Stop 04/05/25 at 14:05; Status DC Heparin Sodium (Porcine) *calculation based on ACTUAL B... AD PRN IV; Start 04/04/25 at 09:30; Stop 04/04/25 at 08:52; Status DC Heparin Sodium/ Dextrose 250 ml @ 0 mls/hr Q6H IV; Start 04/04/25 at 09:30; Stop 04/04/25 at 08:52; Status DC Diltiazem HCl 120 mg Q24H PO; Start 04/05/25 at 14:00; Stop 04/05/25 at 15:09; Status DC Diltiazem HCl 120 mg Q24H PO Last administered on 04/09/25at 16:54; Start 04/05/25 at 16:00; Stop 05/05/25 at 15:59 Aspirin 325 mg DAILY PO Last administered on 04/09/25at 09:00; Start 04/05/25 at 17:30; Stop 05/05/25 at 17:29 Wound Care/ Dressing Products APPLY DIRECTED BID TP Last administered on 04/09/25at 21:20; Start 04/09/25 at 21:00; Stop 05/09/25 at 20:59 LOPEZ RODRIGUEZ MD Apr 09, 2025 22:05
[2025-04-10 03:57] VITALS: BP 153/89; PULSE 82; RESP 18; TEMP 97.9
[2025-04-10 05:18] LABS: NUCLEATED RED BLOOD CELLS 0.0 % (0.0-0.19); PLATELET COUNT (AUTO) 62 K/uL (130-400); RED BLOOD CELL COUNT(AUTO) 4.63 MIL/uL (4.50-6.20); RED CELL DISTRIBUTION WIDTH 14.4 % (11.0-15.5); WHITE BLOOD COUNT (AUTO) 5.7 K/uL (4.8-10.8)
[2025-04-10 05:36] LABS: CREATININE 1.2 mg/dL (0.5-1.3); GLOMERULAR FILTR. RATE CALC 62.0 mL/min (>90); GLUCOSE,RANDOM 104.0 mg/dL (70-105); SODIUM SERUM 133.0 mmol/L (136-145); UREA NITROGEN, BLOOD 25.0 mg/dL (7-18)
[2025-04-10 05:49] LABS: PLATELET MORPHOLOGY COMMENT PLT CLUMPS PRESENT
[2025-04-10 07:50] VITALS: BP 179/94; PULSE 65; RESP 16; TEMP 98.2
[2025-04-10 11:00] VITALS: BP 127/70; PULSE 50; RESP 22; TEMP 97.8
[2025-04-10 15:16] VITALS: BP_SYST 145; BP_SYST 150; BP_DIAS 111; BP_DIAS 73; PULSE 73; RESP 20
--- NOTE | 2025-04-10 17:25 | DS ---
[facility] DISCHARGE SUMMARY Date Patient Seen: Apr 10, 2025 Time of Visit: 17:25 Supervising Physician: Dr. Jain Primary Care Physician: Self, referral Outpatient Specialists: [ ] Inpatient Consults: Dr. Downing (Cardiology) HOSPITAL COURSE: HPI (per admitting provider) 79-year-old male with past medical history of hypertension, chronic alcoholism who presented to ED via EMS with complaint of ground level fall, generalized body weakness and found to have possible congestive heart failure, and NSTEMI. Per report EMS was activated by family member after patient was found on the floor for unknown time. There is no reported head trauma or loss of consciousness. In ED CBC was done showed no acute anemia or infection, his UA did not reveal any acute electrolyte or kidney dysfunction. X-ray of his elbow is negative, however his chest x-ray showed bilateral perihilar and basilar airspace disease representing pulmonary edema and atelectasis there is also biopsy pleural effusion right greater than left, with cardiomegaly and pulmonary vascular congestion. Patient was seen and examined in ED with no relatives present at bedside. Patient appears to be confused and unable to answer questions appropriately. He is hemodynamically stable, currently eating his meal, not in acute respiratory distress. All information were obtained from prior medical record and ER staff report. The patient was treated for the following problems: This patient was evaluated following a ground level fall and was found to have suffered a stroke, was further treated for severe cardiomyopathy with an LVEF of less than 20%, NSTEMI, hypertensive urgency, as well as acute adult failure to thrive and metabolic encephalopathy. Patient currently has an adult protective services case open as EMS found the patient in the house of ill repeat patient's urinary drug screen is positive for cocaine. Patient requires extensive physical therapy, and has been discharged to [facility]. ACTIVE PROBLEM LIST FOR THE HOSPITALIZATION: Cerebrovascular disease status post CVA confirmed by MRI results. 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 PCP notified of patients admission, hospital course and discharge. PHYSICAL EXAM: GENERAL: Confused not in acute respiratory distress HEENT: EOMI, Sclera non icteric, moist mucosa NECK: Supple, no JVD, trachea midline LUNGS: Clear breath sounds bilaterally. No wheezes HEART: Irregular rhythm rate controlled, atrial fib. ABD: Abdomen soft, nontender. Bowel sounds present EXT: No clubbing cyanosis or edema NEURO: Confused, unable to answer questions appropriately FOLLOW-UP: Follow-up with PCP in 2-3 days RECOMMENDATIONS: See Discharge Instructions This case was seen and discussed with my supervising physician. More than 30 minutes spent on discharge process, including evaluation of the patient, discussion with nursing staff, medication reconciliation and follow-up appointments VANE READ PAC Apr 10, 2025 17:25
[2025-04-10 18:38] VITALS: O2SAT 98
--- NOTE | 2025-04-10 18:39 | PN ---
PROGRESS NOTE Date of Service: Apr 10, 2025 Time of Service: 18:36 SUBJECTIVE: Patient is evaluated in at bedside in room 426 for wound care follow up. Patient is awake and alert. Patient's relative at bedside during evaluation. No signs of distress noted. REVIEW OF SYSTEMS CONSTITUTIONAL: Denies fever, chills, or fatigue. HEAD/FACE: No signs of trauma. EENT: Denies eye pain, blurred vision, double vision, or light sensitivity. RESPIRATORY: Denies shortness of breath, cough, wheezing CARDIOVASCULAR: Denies chest pain, palpitation, syncope GASTROINTESTINAL/ABDOMINAL: Denies abdominal pain, constipation, diarrhea, nausea or vomiting GENITOURINARY: Denies dysuria or hematuria. MUSCULOSKELETAL: Denies joint pain, tenderness, or trauma. INTEGUMENTARY: Denies rash or itchiness NEUROLOGICAL/PSYCH: Denies anxiety, depression, heat or cold intolerance. PHYSICAL EXAM EYES: Anicteric. Pupils equal and reactive. HENT: No oral thrush seen, moist Oral mucosa NECK: Supple, no JVD or thyromegaly. LUNGS: Good air entry. No rales, no rhonchi. CARDIOVASCULAR: S1, S2 regular. No murmur heard. ABDOMEN: Soft, non tender, bowel sounds present, no organomegaly CENTRAL NERVOUS SYSTEM: Awake, alert, oriented x 1. No focal deficits. SKIN: Stage 2 ulcer noted to coccyx with mild periwound erythema. No drainage noted. LYMPHATICS: No peripheral lymphadenopathy MUSCULOSKELETAL: No joint swelling, erythema or tenderness. EXTREMITIES: No cyanosis or clubbing BACK: No deformity GENITOURINARY: No dysuria or hematuria Vital Signs (last 8hr) Date Time Temp Pulse Resp B/P (MAP) Pulse Ox O2 Delivery O2 Flow Rate FiO2 04/10/25 11:00 97.9 50 22 127/70 98 Room Air LABS: Laboratory: Test 04/10/25 04:45 04/09/25 05:25 Range/Units White Blood Count 5.7 4.8-10.8 K/uL Red Blood Count 4.63 4.50-6.20 MIL/uL Hemoglobin 14.4 14.0-18.0 g/dL Hematocrit 43.1 42-54 % Mean Corpuscular Volume 93.1 79-99 fL Mean Corpuscular Hemoglobin 31.1 27.0-33.0 pg Mean Corpuscular Hemoglobin Concent 33.4 32.0-36.0 g/dL Red Cell Distribution Width 14.4 11.0-15.5 % Platelet Count 62 L 130-400 K/uL Mean Platelet Volume 10.8 H 7.5-10.5 fL Nucleated Red Blood Cells 0.0 0.0-0.19 % Platelet Morphology Comment PLT CLUMPS PRESENT Sodium Level 133 L 136-145 mmol/L Potassium Level 4.3 3.5-5.1 mmol/L Chloride Level 102 101-111 mmol/L Carbon Dioxide Level 28 21-32 mmol/L Blood Urea Nitrogen 25 H 7-18 mg/dL Creatinine 1.2 0.5-1.3 mg/dL Glomerular Filtration Rate Calc 62 >90 mL/min Random Glucose 104 70-105 mg/dL Total Calcium 8.5 8.5-10.1 mg/dL Whole Blood Glucose 102 70-110 MG/DL DIAGNOSTICS / RADIOLOGY: [ ] PROBLEM LIST : Medical Problems: Stage 2 ulcer to coccyx PLAN: Wound care to coccyx- Apply Venelex BID and PRN Keep wounds clean and dry Waffle mattress in place Offloading repositioning every 2 hours Comorbidities per primary care team Further management per hospital course Thank you for the consult and allowing us to participate in the care of this patient. ATTESTATION BY PHYSICIAN I have seen and examined the patient. I reviewed the documentation, medical decision making, and treatment plan as noted by the mid-level provider above. I agree with the findings and plan of care. DIANA CASTELAN MD, MICHELLE A HARDWARE MANAGER Apr 10, 2025 18:39
[2025-04-10 20:00] VITALS: BP 131/91; PULSE 67; RESP 18; TEMP 97.5
--- NOTE | 2025-04-10 20:50 | NUR ---
FAMILY INFORMED NEXT OF [facility] [facility]LE[facility]JAN REGARDING PATIENT BEING DISCHARGE TO [facility] VIA EMS, FAMILY IN [place] WILL FOLLOW UP ,AWAITING FOR EMS TO TRANSFER PATIENT TO [facility] , REPORT GIVEN DOCUMENTATION FAXED
--- NOTE | 2025-04-10 23:10 | NUR ---
DISCHARGE DISCHARGE TO [facility] VIA EMS , NAD
== END 2025-04-10 23:10 | DRG 64 ==
LOC: EDH 11:42 → EDHIP 14:46 → 3CH 22:15 → OBSVTOIN 04-03 10:00 → 2DH 04-03 17:07 → 4AH 04-06 05:45 → 4DH 04-08 09:02
PROVIDERS: ADMIT Internal Medicine Critical Care Medicine; ATTEND Internal Medicine Critical Care Medicine
DX: I63.9 Cerebral infarction, unspecified (principal); G93.41 Metabolic encephalopathy; I21.4 Non-ST elevation (NSTEMI) myocardial infarction; J96.01 Acute respiratory failure with hypoxia; I42.9 Cardiomyopathy, unspecified; J98.11 Atelectasis; Z20.822 Contact with and (suspected) exposure to COVID-19; I11.0 Hypertensive heart disease with heart failure; I50.9 Heart failure, unspecified; R62.7 Adult failure to thrive; I16.0 Hypertensive urgency; F10.90 Alcohol use, unspecified, uncomplicated; I48.91 Unspecified atrial fibrillation; L89.152 Pressure ulcer of sacral region, stage 2; D69.6 Thrombocytopenia, unspecified; Z66 Do not resuscitate; Z79.82 Long term (current) use of aspirin; Z86.73 Personal history of transient ischemic attack (TIA), and cerebral infarction without residual deficits; Z79.899 Other long term (current) drug therapy; Z51.5 Encounter for palliative care; Z68.20 Body mass index [BMI] 20.0-20.9, adult
CPT/HCPCS: 36415; 70450; 70551; 71045; 73070; 80048; 80053; 80076; 80305; 81001; 82140; 82550; 82948; 83036; 83735; 83880; 84443; 84484; 85025; 85027; 85610; 85730; 87635; 87804; 92610; 93005; 93306; 96374; 97161; 99285; G0378; J0360; J1200; J3411; J3475; J3490